=== PATIENT | female | born 1945 | race African-American/Black ===

== ENCOUNTER 2016-08-12 10:21 | Inpatient (IN) | payer OTHER ==
[2016-08-12 10:53] VITALS: BMI 20.7
--- NOTE | 2016-08-12 15:09 | HP ---
COWS - Scale Resting Pulse: 2= MS 101-120 Sweatin= Chills/Flushing Restless Observation: 1= Difficult to Sit Still Pupil Size: 1= Pupils >than Normal Bone or Joint Aches: 1= Mild Discomfort Runny Nose/ Eye Tearin= Runny Nose/Eyes GI Upset > 30mins: 2= Nausea/Diarrhea Tremor Observation: 2= Slight Tremor Visible Yawning Observation: 2= >3x During Session Anxiety or Irritability: 2=Irritable/Anxious Goose Flesh Skin: 0=Smooth Skin COWS Score: 16 Admission ROS S - HPI Chief Complaint: "I want to stop using. I want this problem to go away." Pt. is here to Detox from Heroin. Allergies/Adverse Reactions: Allergies Allergy/AdvReac Type Severity Reaction Status Date / Time ibuprofen Allergy Mild Nausea Verified 08/12/16 13:25 History of Present Illness: Pt. is a 70 YO female here to Detox from Heroin. Pt. has had 1 previous Detox admission at [facility] several years ago. Exam Limitations: No Limitations - Ebola screening Have you traveled outside of the country in the last 21 days: No Have you had contact with anyone from an Ebola affected area: No Have you been sick,other than usual withdrawal symptoms: No Do you have a fever: No - Review of Systems Constitutional: Diaphoresis, Loss of Appetite, Malaise, Night Sweats, Changes in sleep EENT: reports: Blurred Vision, Other (Denture - Upper and Lower.) Respiratory: reports: No Symptoms reported Cardiac: reports: Palpitations GI: reports: Constipated, Nausea, Poor Appetite, Vomiting, Indigestion : reports: No Symptoms Reported Musculoskeletal: reports: No Symptoms Reported Integumentary: reports: No Symptoms Reported Neuro: reports: Tremors Endocrine: reports: No Symptoms Reported Hematology: reports: Anemia (No meds.) Psychiatric: reports: Judgement Intact, Mood/Affect Appropiate, Orientated x3, Anxious, Depressed Other Systems: Reviewed and Negative Patient History - Patient Medical History Hx Anemia: Yes (No meds.) Hx Asthma: Yes (On med.) Hx Chronic Obstructive Pulmonary Disease (COPD): No Hx Cancer: No Hx Cardiac Disorders: No Hx Congestive Heart Failure: No Hx Hypertension: Yes (Previous med., last taken approx. 7 months ago (unable to afford.)) Hx Hypercholesterolemia: No Hx Pacemaker: No HX Cerebrovascular Accident: No Hx Seizures: No Hx Dementia: No Hx Diabetes: No Hx Gastrointestinal Disorders: No Hx Liver Disease: No Hx Genitourinary Disorders: No Hx Sexually Transmitted Disorders: No Hx Renal Disease (ESRD): No Hx Thyroid Disease: No Hx Human Immunodeficiency Virus (HIV): No (Last Tested approx. 3 months ago: NEGATIVE.) Hx Hepatitis C: No (Never Tested.) Hx Depression: Yes (On meds.) Hx Suicide Attempt: Yes (Age 16. PATIENT DENIES CURRENT SI / HI.) Hx Bipolar Disorder: No Hx Schizophrenia: No - Patient Surgical History Past Surgical History: No Hx Neurologic Surgery: No Hx Cataract Extraction: No Hx Cardiac Surgery: No Hx Lung Surgery: No Hx Breast Surgery: No Hx Breast Biopsy: No Hx Abdominal Surgery: No Hx Appendectomy: No Hx Cholecystectomy: No Hx Genitourinary Surgery: No Hx Section: Yes (Approx. 35 years ago.) Hx Orthopedic Surgery: Yes (Repair of left Wrist: 2011.) Hx Hysterectomy: No Anesthesia Reaction: No - PPD History Previous Implant?: Yes Documented Results: Negative w/o proof Implanted On Prior [facility] Admission?: No PPD to be Administered?: Yes - Reproductive History Patient is a Female of Child Bearing Age (11 -55 yrs old): No LMP comment: Stopped at Age 57. Patient : No - Smoking Cessation Smoking history: Current every day smoker Have you smoked in the past 12 months: Yes Aproximately how many cigarettes per day: 7 Cigars Per Day: 0 Hx Chewing Tobacco Use: No Initiated information on smoking cessation: Yes 'Breaking Loose' booklet given: 08/12/16 (GIVEN ON UNIT.) - Substance & Tx. History Hx Alcohol Use: Yes (Occasional.) Hx Substance Use: Yes Substance Use Type: Alcohol, Heroin Hx Substance Use Treatment: Yes (1 Previous Detox admission at [facility].) - Substances Abused Heroin Route: Inhalation Frequency: Daily Amount used: 3-4 bags Age of first use: 66 Date of Last Use: 08/12/16 Alcohol Route: Oral Frequency: 1-3 times last 30 days Amount used: 2 Beers. Age of first use: 16 Date of Last Use: 08/11/16 Family Disease History - Family Disease History Family Disease History: Heart Disease: Brother (1 ([place]); PTSD), Other: Brother, Sister ( (Unknown reason).) Admission Physical Exam [facility] - Vital Signs Vital Signs: Vital Signs - 24 hr 08/12/16 10:51 Temperature 98.6 F Pulse Rate 110 H Respiratory 20 Rate Blood Pressure 114/61 - Physical General Appearance: Yes: Nourished, Appropriately Dressed, Mild Distress, Tremorous, Anxious HEENTM: Yes: Hearing grossly Normal, Normocephalic, Normal Voice, ELLE, Pharynx Normal Respiratory: Yes: Chest Non-Tender, Lungs Clear, No Respiratory Distress Neck: Yes: No masses,lesions,Nodules, Supple, Trachea in good position Breast: Yes: Breast Exam Deferred Cardiology: Yes: Regular Rhythm, Regular Rate, S1, S2, Tachycardia Abdominal: Yes: Normal Bowel Sounds, Non Tender, Flat, Soft Genitourinary: Yes: Within Normal Limits Back: Yes: Normal Inspection Musculoskeletal: Yes: Gait Steady Extremities: Yes: Non-Tender, Tremors Neurological: Yes: Fully Oriented, Alert, Normal Mood/Affect, Normal Response Integumentary: Yes: Normal Color, Dry, Warm Lymphatic: Yes: Within Normal Limits - Diagnostic (1) Opioid dependence with withdrawal Current Visit: Yes Status: Acute (2) Nicotine dependence Current Visit: Yes Status: Chronic Qualifiers: Nicotine product type: cigarettes Substance use status: uncomplicated Qualified Code(s): F17.210 - Nicotine dependence, cigarettes, uncomplicated (3) Hypertension Current Visit: Yes Status: Chronic Qualifiers: Hypertension type: essential hypertension Qualified Code(s): I10 - Essential (primary) hypertension (4) Asthma Current Visit: Yes Status: Chronic Qualifiers: Asthma severity: mild persistent Asthma complication type: uncomplicated Qualified Code(s): J45.30 - Mild persistent asthma, uncomplicated Cleared for Admission [facility] - Detox or Rehab [facility] Level of Care: Medically Managed Detox Regimen/Protocol: Methadone (ADVISED PATIENT TO FOLLOW-UP WITH GAS CUTTING MACHINE OPERATOR / REHAB MEDICAL PROVIDER AFTER DISCHARGE FROM DETOX FOR GENERAL MEDICAL ASESSMENT. ) [facility] Breath Alcohol Content Breath Alcohol Content: 0 Urine Pregancy Test - Result Urine Test Results: Negative- NO Line Present Urine Drug Screen - Results Drug Screen Negative: No Urine Drug Screen Results: OPI-Opiates
[2016-08-12] MEDS ORDERED: METHADONE HCL 10 MG TABLET (FOR DETOX USE ONLY) PO ONE ×2 (15:52→23:00)
[2016-08-12] MEDS ORDERED: ACETAMINOPHEN 325 MG TABLET (FP) PO PRN (15:52)
[2016-08-12] MEDS ORDERED: MAGNESIUM HYDROX 2400MG/30ML ORAL SUSPENSION 30 ML CUP PO PRN (15:52)
[2016-08-12] MEDS ORDERED: MENTHOL/PHENOL 1 EACH UD MM PRN (15:52)
[2016-08-12] MEDS ORDERED: hydrOXYzine PAMOATE 50 MG CAPSULE (FP) PO PRN (15:52)
[2016-08-12] MEDS ORDERED: LOPERAMIDE HCL 2 MG CAPSULE PO PRN (15:52)
[2016-08-12] MEDS ORDERED: MAGNESIUM CITRATE 300 ML BOTTLE PO PRN (15:52)
[2016-08-12] MEDS ORDERED: MAG HYDROX/AL HYDROX/SIMETH 30 ML UNIT-DOSE CUP PO PRN (15:52)
[2016-08-12] MEDS ORDERED: diphenhydrAMINE HCL 50 MG CAPSULE PO PRN (15:52)
[2016-08-12] MEDS ORDERED: P-EPHED 60MG/TRIPROLIDI 2.5MG TABLET PO PRN (15:52)
[2016-08-12] MEDS ORDERED: guaiFENesin/D-METHORPHAN HB 10 ML UNIT-DOSE CUPS PO PRN (15:52)
[2016-08-12] MEDS ORDERED: ALBUTEROL SO4 6.7 GM HFA INHALER IH PRN (15:58)
[2016-08-12] MEDS: diazePAM 5 MG TABLET PO PRN ×2 (17:04→22:41)
[2016-08-12] MEDS: NICOTINE 14 MG/24 HOURS TOPICAL PATCH TD SCH (17:31)
[2016-08-12 17:41] LABS: URINE APPEARANCE CLEAR; URINE BILIRUBIN NEGATIVE (NEGATIVE); URINE BLOOD NEGATIVE (NEGATIVE); URINE COLOR LTYELLOW; URINE GLUCOSE (UA) NEGATIVE (NEGATIVE); URINE KETONE NEGATIVE (NEGATIVE); URINE LEUK ESTERASE 3+ (NEGATIVE); URINE NITRITE NEGATIVE (NEGATIVE); URINE PROTEIN NEGATIVE (NEGATIVE); URINE UROBILINOGEN NEGATIVE E.U./dl (0.2-1.0)
[2016-08-12 17:44] LABS: URINE HYALINE CAST 1 /lpf; URINE MUCUS RARE; URINE RBC <1 /hpf (0-3); URINE WBC 8 /hpf (3-5)
[2016-08-12] MEDS: BUDESONIDE/FORMETEROL FUMARATE 80/4.5 mcg INHALER IH SCH (22:41)
[2016-08-12] MEDS: THIAMINE HCL 100 MG TABLET (FP) PO SCH (22:41)
[2016-08-13] MEDS: diazePAM 5 MG TABLET PO PRN (06:15)
--- NOTE | 2016-08-13 08:44 | EKG ---
Test Reason : Blood Pressure : / mmHG Vent. Rate : 090 BPM Atrial Rate : 090 BPM P-R Int : 130 ms QRS Dur : 082 ms QT Int : 386 ms P-R-T Axes : 082 075 088 degrees QTc Int : 472 ms SINUS RHYTHM WITH PREMATURE VENTRICULAR COMPLEXES OR FUSION COMPLEXES POSSIBLE LEFT ATRIAL ENLARGEMENT NONSPECIFIC ST AND T WAVE ABNORMALITY ABNORMAL ECG NO PREVIOUS ECGS AVAILABLE Confirmed by TAL HARRINGTON MD ([id number]) on 08/13/2016 8:43:32 AM Referred By: Sebastián Lord Confirmed By:TAL HARRINGTON MD
--- NOTE | 2016-08-13 09:27 | CONSULT ---
[facility] Psychiatric Consult - Data Date of interview: 08/13/16 Admission source: [facility] Identifying data: This is 70 years old female with psychiatric hospitalization history intoxicated with: Alcohol, Opioids and Nicoptine Substance Abuse History: - Smoking Cessation. Smoking history: Current every day smoker. Have you smoked in the past 12 months: Yes. Aproximately how many cigarettes per day: 7. Cigars Per Day: 0. Hx Chewing Tobacco Use: No. Initiated information on smoking cessation: Yes. 'Breaking Loose' booklet given : 08/12/16 (GIVEN ON UNIT.). - Substance & Tx. History. Hx Alcohol Use: Yes ( Occasional.). Hx Substance Use: Yes. Substance Use Type: Alcohol, Heroin. Hx Substance Use Treatment: Yes (1 Previous Detox admission at [facility] - Substances Abused. Heroin. Route: Inhalation. Frequency: Daily. Amount used: 3-4 bags. Age of first use: 66. Date of Last Use: 08/12/16. Alcohol. Route: Oral. Frequency: 1-3 times last 30 days. Amount used: 2 Beers. Age of first use: 16. Date of Last Use: 08/11/16 Medical History: Asthma, HTN Psychiatric History: Patient reprots history of MDD with most recent psychiatric admission on more then 6 years ago, reprotys taking prior to admission: Seroquel 100mg po qhs. Paxil 10mg poqd Physical/Sexual Abuse/Trauma History: Denies Additional Comment: Seroquel 100mg po qhs. Paxil 10mg poqd Mental Status Exam - Mental Status Exam Alert and Oriented to: Person Cognitive Function: Fair Patient Appearance: Unkempt Mood: Sad Affect: Flat Patient Behavior: Sedated Speech Pattern: Delayed Voice Loudness: Mildly Loud Thought Process: Flight of Ideas Thought Disorder: Not Present Hallucinations: Denies Suicidal Ideation: Denies Homicidal Ideation: Denies Insight/Judgement: Fair Sleep: Difficulty falling asleep Appetite: Fair Muscle strength/Tone: Mild Hypotonicity Gait/Station: Shuffling Additional Comments: Seroquel 100mg po qhs. Paxil 10mg poqd Psychiatric Findings - Problem List ([place] 1, 2,3) (1) Opioid dependence with withdrawal Current Visit: Yes Status: Acute (2) Hypertension Current Visit: Yes Status: Chronic Qualifiers: Hypertension type: essential hypertension Qualified Code(s): I10 - Essential (primary) hypertension (3) Nicotine dependence Current Visit: Yes Status: Chronic Qualifiers: Nicotine product type: cigarettes Substance use status: uncomplicated Qualified Code(s): F17.210 - Nicotine dependence, cigarettes, uncomplicated (4) MDD (major depressive disorder) Current Visit: Yes Status: Acute - Initial Treatment Plan Initial Treatment Plan: Seroquel 100mg po qhs. Paxil 10mg poqd
[2016-08-13] MEDS ORDERED: METHADONE HCL 10 MG TABLET (FOR DETOX USE ONLY) PO ONE (10:00)
[2016-08-13 10:13] LABS: MCHC 26.6 g/dl (32.0-36.0); MEAN CELL VOLUME 65.2 fl (80-96); MEAN PLT VOLUME 8.7 fl (7.5-11.1); PLATELET COUNT 67 K/MM3 (134-434); RDW 26.2 % (11.6-15.6); WHITE BLOOD COUNT 4.4 K/mm3 (4.0-10.0)
[2016-08-13 10:21] LABS: CALCIUM 7.9 mg/dL (8.5-10.1); COCKROFT - GAULT 50.8895
[2016-08-13 10:23] LABS: BILIRUBIN,TOTAL 0.4 mg/dL (0.2-1.0); TOT PROT 6.2 g/dl (6.4-8.2)
[2016-08-13] MEDS: PARoxetine HCL 10 MG TABLET (FP) PO SCH (10:48)
[2016-08-13] MEDS: NICOTINE 14 MG/24 HOURS TOPICAL PATCH TD SCH (10:49)
[2016-08-13] MEDS: PRENATAL VITAMINS W/ FOLIC ACID TABLET (FP) PO SCH (10:49)
[2016-08-13] MEDS: BUDESONIDE/FORMETEROL FUMARATE 80/4.5 mcg INHALER IH SCH ×2 (10:49→22:35)
[2016-08-13 11:14] LABS: MCH 17.4 pg (25.7-33.7)
--- NOTE | 2016-08-13 11:14 | PN ---
[facility] Progress Note (SOAP) Subjective: interrupted sleep, sweats Objective: 08/13/16 11:12 Vital Signs Temperature 97.5 F L 08/13/16 06:00 Pulse Rate 78 08/13/16 06:00 Respiratory Rate 16 08/13/16 06:00 Blood Pressure 129/56 08/13/16 06:00 O2 Sat by Pulse Oximetry (%) Laboratory Tests 08/12/16 08/13/16 17:29 07:00 Sodium 144 Potassium 4.0 Chloride 106 Carbon Dioxide 32 Anion Gap 6 L BUN 21 H Creatinine 1.0 Creat Clearance w eGFR 55.14 Random Glucose 141 H Calcium 7.9 L Total Bilirubin 0.4 AST 24 ALT 20 Alkaline Phosphatase 69 Total Protein 6.2 L Albumin 3.0 L Urine Color Ltyellow Urine Appearance Clear Urine pH 5.0 Ur Specific [place] 1.012 Urine Protein Negative Urine Glucose (UA) Negative Urine Ketones Negative Urine Blood Negative Urine Nitrite Negative Urine Bilirubin Negative Urine Urobilinogen Negative Ur Leukocyte Esterase 3+ H Urine RBC <1 Urine WBC 8 Ur Epithelial Cells Rare Hyaline Casts 1 Urine Mucus Rare pt aox3 in nad ambulating 08/13/16 11:15 Assessment: 08/13/16 11:12 withdrawal sx;s Plan: cont detox increase fluids
[2016-08-13 14:47] LABS: ANISOCYTOSIS 3+; HYPOCHROMIA 4+; MICROCYTOSIS 2+
[2016-08-13 14:48] LABS: TARGET CELLS 3+
[2016-08-13] MEDS: NICOTINE POLACRILEX 2 MG GUM BC PRN (17:31)
[2016-08-13] MEDS ORDERED: PT OWN MED DRAWER 7, Y5N ONE (22:12)
[2016-08-13] MEDS: THIAMINE HCL 100 MG TABLET (FP) PO SCH (22:33)
[2016-08-13] MEDS: QUEtiapine FUMARATE 100 MG TABLET (FP) PO SCH (22:34)
[2016-08-14] MEDS ORDERED: ALBUTEROL SO4 2.5/IPRATROPIUM 0.5 INH SOL 3 ML VIAL.NEB. NEB PRN (07:28)
[2016-08-14] MEDS ORDERED: METHADONE HCL 5 MG TABLET (FOR DETOX USE ONLY) PO ONE (10:00)
[2016-08-14] MEDS: PRENATAL VITAMINS W/ FOLIC ACID TABLET (FP) PO SCH (10:30)
[2016-08-14] MEDS: NICOTINE 14 MG/24 HOURS TOPICAL PATCH TD SCH (10:30)
[2016-08-14] MEDS: PARoxetine HCL 10 MG TABLET (FP) PO SCH (10:30)
[2016-08-14] MEDS: BUDESONIDE/FORMETEROL FUMARATE 80/4.5 mcg INHALER IH SCH ×2 (10:31→22:24)
[2016-08-14] MEDS: NICOTINE POLACRILEX 2 MG GUM BC PRN (10:34)
--- NOTE | 2016-08-14 10:38 | PN ---
[facility]HS COWS - Scale Resting Pulse: 0= NV 80 or Below Sweatin= Chills/Flushing Restless Observation: 1= Difficult to Sit Still Pupil Size: 1= Pupils >than Normal Bone or Joint Aches: 2= Severe Diffuse Aches Runny Nose/ Eye Tearin= Runny Nose/Eyes GI Upset > 30mins: 1= Stomach Cramp Tremor Observation of Outstretched Hands: 0= None Yawning Observation: 0= None Anxiety or Irritability: 2=Irritable/Anxious Goose Flesh Skin: 0=Smooth Skin COWS Score: 10 S Progress Note (SOAP) Subjective: interrupted sleep, sweats, tired Objective: 08/14/16 10:36 Vital Signs Temperature 97.7 F 08/14/16 06:29 Pulse Rate 75 08/14/16 06:29 Respiratory Rate 16 08/14/16 06:29 Blood Pressure 110/77 08/14/16 06:29 O2 Sat by Pulse Oximetry (%) Laboratory Tests 08/12/16 08/12/16 08/13/16 07:00 17:29 07:00 WBC 4.4 RBC 3.86 Hgb 6.7 L* Hct 25.2 L MCV 65.2 L MCHC 26.6 L RDW 26.2 H Plt Count 67 L MPV 8.7 Hypochromic-Microcytic 4+ Anisocytosis 3+ Microcytosis 2+ Macrocytosis Few Target Cells 3+ Sodium Potassium Chloride Carbon Dioxide Anion Gap BUN Creatinine Creat Clearance w eGFR Random Glucose Calcium Total Bilirubin AST ALT Alkaline Phosphatase Total Protein Albumin Urine Color Ltyellow Urine Appearance Clear Urine pH 5.0 Ur Specific [place] 1.012 Urine Protein Negative Urine Glucose (UA) Negative Urine Ketones Negative Urine Blood Negative Urine Nitrite Negative Urine Bilirubin Negative Urine Urobilinogen Negative Ur Leukocyte Esterase 3+ H Urine RBC <1 Urine WBC 8 Ur Epithelial Cells Rare Hyaline Casts 1 Urine Mucus Rare RPR Titer Hepatitis C Antibody >11.0 H 08/13/16 08/13/16 07:00 07:00 WBC RBC Hgb Hct MCV MCHC RDW Plt Count MPV Hypochromic-Microcytic Anisocytosis Microcytosis Macrocytosis Target Cells Sodium 144 Potassium 4.0 Chloride 106 Carbon Dioxide 32 Anion Gap 6 L BUN 21 H Creatinine 1.0 Creat Clearance w eGFR 55.14 Random Glucose 141 H Calcium 7.9 L Total Bilirubin 0.4 AST 24 ALT 20 Alkaline Phosphatase 69 Total Protein 6.2 L Albumin 3.0 L Urine Color Urine Appearance Urine pH Ur Specific [place] Urine Protein Urine Glucose (UA) Urine Ketones Urine Blood Urine Nitrite Urine Bilirubin Urine Urobilinogen Ur Leukocyte Esterase Urine RBC Urine WBC Ur Epithelial Cells Hyaline Casts Urine Mucus RPR Titer Nonreactive Hepatitis C Antibody pt aox3 in nad ambulating Assessment: 08/14/16 10:37 withdrawal sx's anemia -known to pt Plan: cont detox increase fluids feso4 325mg tid vit c
[2016-08-14] MEDS: FERROUS SO4 325 MG TABLET (FP) PO SCH ×3 (13:17→18:05)
[2016-08-14] MEDS: THIAMINE HCL 100 MG TABLET (FP) PO SCH (22:23)
[2016-08-14] MEDS: QUEtiapine FUMARATE 100 MG TABLET (FP) PO SCH (22:23)
[2016-08-14] MEDS: ASCORBIC ACID 500 MG TABLET (FP) PO SCH (22:23)
[2016-08-15] MEDS: FERROUS SO4 325 MG TABLET (FP) PO SCH ×3 (08:00→18:03)
[2016-08-15] MEDS ORDERED: METHADONE HCL 5 MG TABLET (FOR DETOX USE ONLY) PO ONE (10:00)
[2016-08-15] MEDS: PRENATAL VITAMINS W/ FOLIC ACID TABLET (FP) PO SCH (10:20)
[2016-08-15] MEDS: NICOTINE 14 MG/24 HOURS TOPICAL PATCH TD SCH (10:21)
[2016-08-15] MEDS: NICOTINE POLACRILEX 2 MG GUM BC PRN (10:21)
[2016-08-15] MEDS: BUDESONIDE/FORMETEROL FUMARATE 80/4.5 mcg INHALER IH SCH ×2 (10:22→22:41)
[2016-08-15] MEDS: ASCORBIC ACID 500 MG TABLET (FP) PO SCH ×2 (10:22→22:41)
[2016-08-15 11:03] LABS: BASOPHIL 1.1 % (0-2.0); EOSINOPHIL 2.5 % (0-4.5); MCHC 27.7 g/dl (32.0-36.0); MEAN CELL VOLUME 65.3 fl (80-96); MEAN PLT VOLUME 8.8 fl (7.5-11.1); NEUTROPHILS 58.6 % (42.8-82.8); PLATELET COUNT 64 K/MM3 (134-434); RDW 26.3 % (11.6-15.6); WHITE BLOOD COUNT 4.3 K/mm3 (4.0-10.0)
--- NOTE | 2016-08-15 11:07 | PN ---
BHS Progress Note (SOAP) Subjective: interrupted sleep, sweats, decreased appetite , aches Objective: 08/15/16 11:05 Vital Signs Temperature 97.0 F L 08/15/16 06:00 Pulse Rate 88 08/15/16 06:00 Respiratory Rate 16 08/15/16 06:00 Blood Pressure 117/66 08/15/16 06:00 O2 Sat by Pulse Oximetry (%) Laboratory Tests 08/12/16 08/12/16 08/13/16 07:00 17:29 07:00 WBC 4.4 RBC 3.86 Hgb 6.7 L* Hct 25.2 L MCV 65.2 L MCHC 26.6 L RDW 26.2 H Plt Count 67 L MPV 8.7 Hypochromic-Microcytic 4+ Anisocytosis 3+ Microcytosis 2+ Macrocytosis Few Target Cells 3+ Sodium Potassium Chloride Carbon Dioxide Anion Gap BUN Creatinine Creat Clearance w eGFR Random Glucose Calcium Total Bilirubin AST ALT Alkaline Phosphatase Total Protein Albumin Urine Color Ltyellow Urine Appearance Clear Urine pH 5.0 Ur Specific [place] 1.012 Urine Protein Negative Urine Glucose (UA) Negative Urine Ketones Negative Urine Blood Negative Urine Nitrite Negative Urine Bilirubin Negative Urine Urobilinogen Negative Ur Leukocyte Esterase 3+ H Urine RBC <1 Urine WBC 8 Ur Epithelial Cells Rare Hyaline Casts 1 Urine Mucus Rare RPR Titer Hepatitis C Antibody >11.0 H 08/13/16 08/13/16 07:00 07:00 WBC RBC Hgb Hct MCV MCHC RDW Plt Count MPV Hypochromic-Microcytic Anisocytosis Microcytosis Macrocytosis Target Cells Sodium 144 Potassium 4.0 Chloride 106 Carbon Dioxide 32 Anion Gap 6 L BUN 21 H Creatinine 1.0 Creat Clearance w eGFR 55.14 Random Glucose 141 H Calcium 7.9 L Total Bilirubin 0.4 AST 24 ALT 20 Alkaline Phosphatase 69 Total Protein 6.2 L Albumin 3.0 L Urine Color Urine Appearance Urine pH Ur Specific [place] Urine Protein Urine Glucose (UA) Urine Ketones Urine Blood Urine Nitrite Urine Bilirubin Urine Urobilinogen Ur Leukocyte Esterase Urine RBC Urine WBC Ur Epithelial Cells Hyaline Casts Urine Mucus RPR Titer Nonreactive Hepatitis C Antibody pt aox3 in nad ambulating Assessment: 08/15/16 11:06 Plan: cont. detox increase fluids analgesic balm ensure bid
[2016-08-15 11:11] LABS: MCH 18.1 pg (25.7-33.7)
--- NOTE | 2016-08-15 11:44 | PN ---
[facility] Progress Note Note: 70 y/o f pt with h/o anemia not on meds Vital Signs Temperature 97.0 F L 08/15/16 06:00 Pulse Rate 88 08/15/16 06:00 Respiratory Rate 16 08/15/16 06:00 Blood Pressure 117/66 08/15/16 06:00 O2 Sat by Pulse Oximetry (%) Laboratory Tests 08/12/16 08/12/16 08/13/16 07:00 17:29 07:00 WBC 4.4 RBC 3.86 Hgb 6.7 L* Hct 25.2 L MCV 65.2 L MCHC 26.6 L RDW 26.2 H Plt Count 67 L MPV 8.7 Neutrophils % Lymphocytes % Monocytes % Eosinophils % Basophils % Hypochromic-Microcytic 4+ Anisocytosis 3+ Microcytosis 2+ Macrocytosis Few Target Cells 3+ Sodium Potassium Chloride Carbon Dioxide Anion Gap BUN Creatinine Creat Clearance w eGFR Random Glucose Calcium Total Bilirubin AST ALT Alkaline Phosphatase Total Protein Albumin Urine Color Ltyellow Urine Appearance Clear Urine pH 5.0 Ur Specific [place] 1.012 Urine Protein Negative Urine Glucose (UA) Negative Urine Ketones Negative Urine Blood Negative Urine Nitrite Negative Urine Bilirubin Negative Urine Urobilinogen Negative Ur Leukocyte Esterase 3+ H Urine RBC <1 Urine WBC 8 Ur Epithelial Cells Rare Hyaline Casts 1 Urine Mucus Rare RPR Titer Hepatitis C Antibody >11.0 H 08/13/16 08/13/16 08/15/16 07:00 07:00 07:00 WBC 4.3 RBC 3.26 L Hgb 5.9 L* D Hct 21.3 L D MCV 65.3 L MCHC 27.7 L RDW 26.3 H Plt Count 64 L MPV 8.8 Neutrophils % 58.6 Lymphocytes % 24.4 Monocytes % 13.4 H Eosinophils % 2.5 Basophils % 1.1 Hypochromic-Microcytic Anisocytosis Microcytosis Macrocytosis Target Cells Sodium 144 Potassium 4.0 Chloride 106 Carbon Dioxide 32 Anion Gap 6 L BUN 21 H Creatinine 1.0 Creat Clearance w eGFR 55.14 Random Glucose 141 H Calcium 7.9 L Total Bilirubin 0.4 AST 24 ALT 20 Alkaline Phosphatase 69 Total Protein 6.2 L Albumin 3.0 L Urine Color Urine Appearance Urine pH Ur Specific [place] Urine Protein Urine Glucose (UA) Urine Ketones Urine Blood Urine Nitrite Urine Bilirubin Urine Urobilinogen Ur Leukocyte Esterase Urine RBC Urine WBC Ur Epithelial Cells Hyaline Casts Urine Mucus RPR Titer Nonreactive Hepatitis C Antibody pt aox3 lying in bed ,tired imp- severe anemia plan ED evaluation pt signed out to Dr miller in ED [facility] ambul activated
[2016-08-15 12:13] VITALS: BP 118/62; PULSE 98; TEMP 97.7
[2016-08-15 12:39] LABS: ANISOCYTOSIS 4+; HYPOCHROMIA 3+; MICROCYTOSIS 2+
[2016-08-15 12:40] LABS: FRAGMENTED CELL 1+; TARGET CELLS 4+
[2016-08-15] MEDS: PARoxetine HCL 10 MG TABLET (FP) PO SCH (13:49)
[2016-08-15] MEDS ORDERED: METHYL SALICYLATE/MENTHOL OINT 30 GM TUBE TP SCH (22:00)
[2016-08-15] MEDS: QUEtiapine FUMARATE 100 MG TABLET (FP) PO SCH (22:41)
[2016-08-15] MEDS: THIAMINE HCL 100 MG TABLET (FP) PO SCH (22:41)
[2016-08-16] MEDS ORDERED: METHADONE HCL 10 MG TABLET (FOR DETOX USE ONLY) PO ONE (10:00)
--- NOTE | 2016-08-16 10:32 | DS ---
[facility] Detox Discharge Summary Admission Date: 08/12/16 Discharge Date: 08/15/16 - History Present History: Opioid Dependence - Physical Exam Results Vital Signs: Vital Signs Temperature 97.7 F 08/15/16 10:00 Pulse Rate 98 H 08/15/16 10:00 Respiratory Rate 18 08/16/16 03:30 Blood Pressure 118/62 08/15/16 10:00 O2 Sat by Pulse Oximetry (%) - Treatment Hospital Course: Detox Protocol Followed, Detoxed Safely Patient has Accepted a Rehab Referral to: pt transfered to ED 2nd severe anemia - Medication Discharge Medications: Ambulatory Orders Albuterol Sulfate Inhaler - [Ventolin Hfa Inhaler -] 1 - 2 inh PO QID 08/15/16 Albuterol Sulfate [Ventolin -] 2 mg PO TID 08/15/16 Ascorbic Acid [Vitamin C] 500 mg PO BID 08/15/16 Budesonide/Formeterol Fumarate [SYMBICORT 80/4.5mcg -] 1 inh PO BID 08/15/16 Diazepam [Valium] 5 mg PO DAILY 08/15/16 Diphenhydramine [Benadryl -] 50 mg PO DAILY 08/15/16 Ferrous Sulfate [Feosol] 325 mg PO DAILY 08/15/16 Hydroxyzine Pamoate [Vistaril -] 50 mg PO TID 08/15/16 Loperamide HCl [Imodium -] 4 mg PO ASDIR 08/15/16 Magnesium Hydrox 2400MG/30Ml [Milk of Magnesia -] 30 ml PO ONCE 08/15/16 Methadone (Detox) [Dolophine -] 15 mg PO DAILY 08/15/16 P-Ephed 60Mg/Triprolidi 2.5MG [Actifed -] 1 combo PO Q4H 08/15/16 Paroxetine HCl [Paxil -] 10 mg PO DAILY 08/15/16 Vit/Iron Fumarate/FA [ Tablet] 1 each PO DAILY 08/15/16 Quetiapine Fumarate [Seroquel] 100 tab PO DAILY 08/15/16 Thiamine HCl [Vitamin B1] 100 mg PO DAILY 08/15/16 - Diagnosis (1) Anemia Status: Acute (2) Opioid dependence with withdrawal Status: Acute (3) Asthma Status: Chronic Qualifiers: Asthma severity: mild persistent Asthma complication type: uncomplicated Qualified Code(s): J45.30 - Mild persistent asthma, uncomplicated (4) Hypertension Status: Chronic Qualifiers: Hypertension type: essential hypertension Qualified Code(s): I10 - Essential (primary) hypertension (5) Nicotine dependence Status: Chronic Qualifiers: Nicotine product type: cigarettes Substance use status: uncomplicated Qualified Code(s): F17.210 - Nicotine dependence, cigarettes, uncomplicated - AMA Did Patient Leave Against Medical Advice: No
[2016-08-16 14:18] LABS: HCV LOG 10 5.217 (.)
[2016-08-17] MEDS ORDERED: METHADONE HCL 5 MG TABLET (FOR DETOX USE ONLY) PO ONE (06:00)
== END 2016-08-15 12:38 | disposition short-term general hospital (02) | DRG 897 ==
LOC: YASAS 10:21 → Y6N 13:49
PROVIDERS: ADMIT Internal Medicine; ATTEND Internal Medicine Addiction Medicine
PROC: HZ2ZZZZ Detoxification Services for Substance Abuse Treatment (ICD-10-PCS; principal; 2016-08-16)
DX: F11.23 Opioid dependence with withdrawal (principal); F33.9 Major depressive disorder, recurrent, unspecified; F17.210 Nicotine dependence, cigarettes, uncomplicated; I10 Essential (primary) hypertension; J45.20 Mild intermittent asthma, uncomplicated; D64.9 Anemia, unspecified
CPT/HCPCS: 36415; 80053; 81003; 81015; 85025; 85027; 86593; 87522; 93005; 93010; 94640

== ENCOUNTER 2016-08-15 12:52 | Inpatient (IN) | payer OTHER ==
--- NOTE | 2016-08-15 13:11 | PDOC ---
History of Present Illness - General Chief Complaint: Revisit, Lab Variance Stated Complaint: Revisit, Lab Variance Time Seen by Provider: 08/15/16 12:55 History Source: Patient Exam Limitations: No Limitations - History of Present Illness Initial Comments: 08/15/16 13:34 70 yo F with pmhx of heroin abuse, asthma and depression presents from [facility] where she was found to be anemic. Non history of GI bleed. Denies blood in stools, urine or hemoptysis. When she presents here to ED she is found to be hypoxic SpO2 -85% on RA with scattered wheezing. She was admitted to detox 3 days prior for heroin detox. She usually snorts 3-4 bags daily. No recent illness or sick contacts. Denies CP,MOSHER, palpitations, abd. pain, or N/V. Past History - Travel Traveled outside of the country in the last 30 days: No Close contact w/someone who was outside of country & ill: No - Past Medical History Allergies/Adverse Reactions: Allergies Allergy/AdvReac Type Severity Reaction Status Date / Time ibuprofen Allergy Mild Nausea Verified 08/15/16 12:53 Home Medications: Ambulatory Orders Albuterol Sulfate Inhaler - [Ventolin Hfa Inhaler -] 1 - 2 inh PO QID 08/15/16 Albuterol Sulfate [Ventolin -] 2 mg PO TID 08/15/16 Ascorbic Acid [Vitamin C] 500 mg PO BID 08/15/16 Budesonide/Formeterol Fumarate [SYMBICORT 80/4.5mcg -] 1 inh PO BID 08/15/16 Diazepam [Valium] 5 mg PO DAILY 08/15/16 Diphenhydramine [Benadryl -] 50 mg PO DAILY 08/15/16 Ferrous Sulfate [Feosol] 325 mg PO DAILY 08/15/16 Hydroxyzine Pamoate [Vistaril -] 50 mg PO TID 08/15/16 Loperamide HCl [Imodium -] 4 mg PO ASDIR 08/15/16 Magnesium Hydrox 2400MG/30Ml [Milk of Magnesia -] 30 ml PO ONCE 08/15/16 Methadone (Detox) [Dolophine -] 15 mg PO DAILY 08/15/16 P-Ephed 60Mg/Triprolidi 2.5MG [Actifed -] 1 combo PO Q4H 08/15/16 Paroxetine HCl [Paxil -] 10 mg PO DAILY 08/15/16 Vit/Iron Fumarate/FA [ Tablet] 1 each PO DAILY 08/15/16 Quetiapine Fumarate [Seroquel] 100 tab PO DAILY 08/15/16 Thiamine HCl [Vitamin B1] 100 mg PO DAILY 08/15/16 Anemia: Yes (No meds.) Asthma: Yes (On med.) Cancer: No Cardiac Disorders: No CVA: No COPD: No CHF: No Dementia: No Diabetes: No GI Disorders: No Disorders: No HTN: Yes (Previous med., last taken approx. 7 months ago (unable to afford.)) Hypercholesterolemia: No Kidney Stones: No Liver Disease: No Psychiatric Problems: Yes (anxiety/depression) Suicide Attempt (Hx): Yes (Age 16. PATIENT DENIES CURRENT SI / HI.) Seizures: No Thyroid Disease: No - Surgical History Abdominal Surgery: No Appendectomy: No Cardiac Surgery: No Cholecystectomy: No Lung Surgery: No Neurologic Surgery: No Orthopedic Surgery: Yes (Repair of left Wrist: 2012.) - Family Disease History Family Disease History: Heart Disease: Brother - Reproductive History PID: No - Psycho/Social/Smoking Cessation Hx Anxiety: Yes Suicidal Ideation: No Smoking History: Current every day smoker Have you smoked in the past 12 months: Yes Number of Cigarettes Smoked Daily: 7 Cigars Per Day: 0 Information on smoking cessation initiated: No 'Breaking Loose' booklet given: 08/12/16 Hx Alcohol Use: No Drug/Substance Use Hx: No Substance Use Type: Alcohol, Heroin Hx Substance Use Treatment: Yes (1 Previous Detox admission at [facility].) Review of Systems - Review of Systems Able to Perform ROS?: Yes Is the patient limited Urdu proficient: No Constitutional: No: Diaphoresis, Fever Respiratory: No: Cough Cardiac (ROS): No: Chest Pain, Palpitations ABD/GI: No: Difficulty Swallowing, Nausea, Rectal Bleeding, Vomiting, Tarry Stools Musculoskeletal: Yes: Muscle Weakness All Other Systems: Reviewed and Negative *Physical Exam - Vital Signs Last Vital Signs Temp Pulse Resp BP Pulse Ox 98.2 F 76 22 111/58 85 L 08/15/16 13:04 08/15/16 13:04 08/15/16 13:04 08/15/16 13:04 08/15/16 13:04 - Physical Exam General Appearance: Yes: Mild Distress HEENT: positive: EOMI, ELLE, Normal Voice Neck: positive: Supple Respiratory/Chest: positive: Decreased Breath Sounds, Wheezing. negative: Respiratory Distress, Accessory Muscle Use Cardiovascular: positive: Regular Rhythm, Regular Rate, S1, S2. negative: Edema , JVD, Murmur Vascular Pulses: Dorsalis-Pedis (R): 2+, Doralis-Pedis (L): 2+ Gastrointestinal/Abdominal: positive: Normal Bowel Sounds, Flat, Soft. negative : Tender, Pulsatile Mass Musculoskeletal: positive: Normal Inspection, CVA Tenderness Extremity: positive: Normal Capillary Refill, Normal Inspection Integumentary: positive: Normal Color, Dry, Warm. negative: Cyanotic, Erythema , Jaundice Neurologic: positive: Fully Oriented, Depressed Affect ED Treatment Course - LABORATORY CBC & Chemistry Diagram: 08/15/16 13:04 08/15/16 13:04 Medical Decision Making - Medical Decision Making 08/15/16 13:42 70 yo F with pmhx of heroin abuse, asthma and depression presents from [facility] where she was found to be anemic. Patient also found to be hypoxic. Will get ABG and measured peak flow was 80. Ordered Duonebs and supplemental O2. Will get CXR and labs (CBC,CMP,UA). 08/15/16 14:03 CBC shows Hgb of 5.9 will send for type and screen. Also ordered 2 units of PRBC. *DC/Admit/Observation/Transfer Diagnosis at time of Disposition: Acute respiratory failure with hypoxia and hypercapnia Anemia Qualifiers: Anemia type: unspecified type Qualified Code(s): D64.9 - Anemia, unspecified - Discharge Dispostion Admit: Yes - Referrals Referrals: Michela Mendoza MD [Primary Care Provider] -
[2016-08-15] MEDS: ALBUTEROL SO4 2.5/IPRATROPIUM 0.5 INH SOL 3 ML VIAL.NEB. NEB SCH ×2 (13:20→14:41)
[2016-08-15] MEDS ORDERED: ALBUTEROL SO4 2.5/IPRATROPIUM 0.5 INH SOL 3 ML VIAL.NEB. NEB ONE ×3 (13:24→14:24)
[2016-08-15] MEDS ORDERED: methylPREDNISolone NA SUCC 125 MG/2 ML VIAL ONE (14:24)
[2016-08-15] MEDS ORDERED: methylPREDNISolone NA SUCC 125 MG/2 ML VIAL IVPB ONE (14:24)
[2016-08-15 14:28] LABS: EOSINOPHIL 2.1 % (0-4.5); MCHC 27.3 g/dl (32.0-36.0); MEAN PLT VOLUME 9.3 fl (7.5-11.1); PLATELET COUNT 61 K/MM3 (134-434); RDW 26.1 % (11.6-15.6); WHITE BLOOD COUNT 4.6 K/mm3 (4.0-10.0)
--- NOTE | 2016-08-15 14:29 | PDOC ---
Attending Attestation - Resident Resident Name: Akash Benjamin - ED Attending Attestation I have performed the following: I have examined & evaluated the patient, The case was reviewed & discussed with the resident, I agree w/resident's findings & plan, Exceptions are as noted - HPI HPI: 08/15/16 14:28 70-year-old female with history of heroin abuse and anemia sent from [facility] for severe anemia - Physicial Exam PE: 08/15/16 14:28 Sleepy but arousable, O2 sat off oxygen 85%, improved to 100% on 3 L. Afebrile. Decreased breath sounds at both bases with prolonged expiration and diffuse expiratory wheezing Abdomen benign. Trace ankle edema bilaterally Neurologically intact - Critical Care Time Total Critical Care Time: 35 Critical Care Statement: The care of this patient involved high complexity decision making to prevent further life threatening deterioration of the patient 's condition and/or to evalute & treat vital organ system(s) failure or risk of failure. - Medical Decision Making 08/15/16 14:29 Patient seen and evaluated with the resident. I agree with the overall evaluation, assessment, and management with the following summary of visit: 70-year-old female with history of heroin abuse and anemia and asthma sent with severe anemia. Found to be somnolent, hypoxic on room air. Hemoglobin today was 5.9. Question etiology of the somnolence: CT head, check pCO2, check ammonia. Will require admission 08/15/16 15:39 hypercarbic on ABG but mental status markedly improved on O2. Will place on bipap and reasess, proceed with admission. Discharge Disposition - Diagnosis Acute respiratory failure with hypoxia and hypercapnia Anemia Qualifiers: Anemia type: unspecified type Qualified Code(s): D64.9 - Anemia, unspecified - Discharge Dispostion Last Admission D/C Date: 02/15/09 - Referrals Referrals: Michela Mendoza MD [Primary Care Provider] - - Patient Instructions - Post Discharge Activity Heart Score/ECG Review #1 ECG reviewed & interpreted by me at: 14:28 08/15/16 14:30 Sinus at 76 with PVCs, septal Q waves, no acute ST or T wave changes noted
[2016-08-15 14:37] LABS: MCH 17.8 pg (25.7-33.7)
[2016-08-15 14:41] LABS: INR 1.1 (0.82-1.09); PROTHROMBIN TIME (PATIENT) 12.1 SEC (9.98-11.88)
[2016-08-15 14:49] LABS: ALBUMIN 2.7 g/dl (3.4-5.0); ANION GAP 3 (8-16); BILIRUBIN,TOTAL 0.2 mg/dL (0.2-1.0); CALCIUM 7.4 mg/dL (8.5-10.1); CO2 35 mmol/L (21-32); COCKROFT - GAULT 73.8055; CREATININE 0.7 mg/dL (0.55-1.02); GLUCOSE,RANDOM 91 mg/dL (74-106); MAGNESIUM 2.2 mg/dL (1.8-2.4); SGOT/AST 25 U/L (15-37); SGPT/ALT 20 U/L (12-78); TOT PROT 5.9 g/dl (6.4-8.2)
[2016-08-15 14:51] LABS: ALK PHOS 67 U/L (45-117); TROPONIN I < 0.02 ng/ml (0.00-0.05)
[2016-08-15 14:59] LABS: URINE APPEARANCE CLEAR; URINE BILIRUBIN NEGATIVE (NEGATIVE); URINE BLOOD NEGATIVE (NEGATIVE); URINE COLOR YELLOW; URINE GLUCOSE (UA) NEGATIVE (NEGATIVE); URINE KETONE NEGATIVE (NEGATIVE); URINE LEUK ESTERASE NEGATIVE (NEGATIVE); URINE NITRITE NEGATIVE (NEGATIVE); URINE PROTEIN NEGATIVE (NEGATIVE); URINE UROBILINOGEN NEGATIVE E.U./dl (0.2-1.0)
[2016-08-15 15:18] LABS: ARTERIAL BLD GAS O2 SATURATION 81.7 % (90-98.9); ARTERIAL BLOOD GAS BASE EXCESS 6.1 meq/l (-2-2); ARTERIAL BLOOD GAS HCO3 32.8 meq/L (22-26); ARTERIAL BLOOD GAS PO2 53.5 mmHg (80-100); ARTERIAL BLOOD GAS pH 7.29 (7.35-7.45)
[2016-08-15 15:37] LABS: ALLENS TEST POSITIVE; ART PUNCT SITE LEFT BRACHIAL; LPM/O2% 21%; METHEMOGLOBIN 0.7 % (0.4-1.5); PT. ON O2? NO; TYPE OF O2 ROOM AIR
--- NOTE | 2016-08-15 19:06 | PN ---
Teaching Attending Note Name of Resident: Bessy Martinez ATTENDING PHYSICIAN STATEMENT I saw and evaluated the patient. I reviewed the resident's note and discussed the case with the resident. I agree with the resident's findings and plan as documented. SUBJECTIVE:70yo F c/o SOB and lethargy. was sent from [facility] for evaluation due to Hgb 6. pt snort 3-4 baggies daily, last use 3 days ago prior to admission to [facility] for detox which she is on day 3 of treatment. states she never had blood transfusion in the past. +subjective weight loss. had colonoscopy 3-4 years ago negative per pt. denies CP, fever, chills, cough, melena, BRBPR OBJECTIVE: Last Vital Signs Temp Pulse Resp BP Pulse Ox 98.2 F 77 17 152/60 97 08/15/16 13:04 08/15/16 16:03 08/15/16 16:03 08/15/16 16:03 08/15/16 16:03 General NAD, lethargic but easily arrousable to verbal stimuli CV S1 S2 RRR no murmur/rub/gallop. +pectus excavatum Lungs coarse breath sounds diffusely. no wheezing Abdomen soft NT/ND Rectal +external hemrrhoids. possible rectal mass anteriorly, good rectal tone. hard stool felt in rectal vault no bleeding ASSESSMENT AND PLAN: 70yo F with PMH Continuous heroin dependence, anemia and depression presented to the ER and was admitted for further evaluation for their emergent condition 1. Symptomatic anemia- currently receiving 1 unit PRBC. will check post transfusion cbc. add iron studies to admitting labs. concern for malignancy assoc with weight loss. GI consult to for evaluation of possible mass. will likely require colonoscopy. trend cardiac markers 2. Acute hypoxic hypercapnic respiratory failure-component of anemia vs possible COPD exacerbation (?history as on symbicort at home). started on solumedrol. CXR negative. will consider CT chest if doesnt improve. will hold at this time due to tenuous respiratory status. maintain spO2 >90% 3. Continuous heroin dependence- on methadone taper. received 15mg today (taper to be 10mg tomorrow and complete following day on 5mg). hold for lethargy. will d/w pt if interested in inpatient rehab when more alert. 4. depression- cont home medication 5. DVT ppx- SCD. hold pharmacological anticoagulation
--- NOTE | 2016-08-15 19:40 | HP ---
CHIEF COMPLAINT: weakness PCP:from [facility] HISTORY OF PRESENT ILLNESS: This is a 70 year old female with a PMHx of asthma and heroin abuse, sent over from [facility] due to increased lethargy, short of breath, found to be anemic with a hemoglobin of 5.9. Patient does have chronic history of anemai, she is on iron pills. NO known history of bleeding disorder, cancer, denies black stool. Last colonoscopy over 5 years ago. She is a smoker 3-5 cigs per day. She uses heroin 3-4 bags per day. Denies chest pain, headache, fever, chills, cough, n,v,d,changed in bowel or bladder. On admission patient was hypercarbic on ABG, hypoxic on room air. She was placed on biPap and given PRBC. ER course was notable for: (1)hypoxia, hypercarbia, cxr wnl (2)hemoglobin 5.9 (3)Sinus at 76 with PVCs, septal Q waves, no acute ST or T wave changes noted Recent Travel: no PAST MEDICAL HISTORY: anemia, asthma, drug abuse PAST SURGICAL HISTORY: Social History: Smokin cigs per day Alcohol:no Drugs: heroin Family History: Allergies ibuprofen Allergy (Mild, Verified 08/15/16 12:53) Nausea HOME MEDICATIONS: Home Medications Medication Instructions Recorded Albuterol Sulfate Inhaler - 1 - 2 inh PO QID 08/15/16 [Ventolin Hfa Inhaler -] Albuterol Sulfate [Ventolin -] 2 mg PO TID 08/15/16 Ascorbic Acid [Vitamin C] 500 mg PO BID 08/15/16 Budesonide/Formeterol Fumarate 1 inh PO BID 08/15/16 [SYMBICORT 80/4.5mcg -] Diazepam [Valium] 5 mg PO DAILY 08/15/16 Diphenhydramine [Benadryl -] 50 mg PO DAILY 08/15/16 Ferrous Sulfate [Feosol] 325 mg PO DAILY 08/15/16 Hydroxyzine Pamoate [Vistaril -] 50 mg PO TID 08/15/16 Loperamide HCl [Imodium -] 4 mg PO ASDIR 08/15/16 Magnesium Hydrox 2400MG/30Ml [Milk 30 ml PO ONCE 08/15/16 of Magnesia -] Methadone (Detox) [Dolophine -] 15 mg PO DAILY 08/15/16 P-Ephed 60Mg/Triprolidi 2.5MG 1 combo PO Q4H 08/15/16 [Actifed -] Paroxetine HCl [Paxil -] 10 mg PO DAILY 08/15/16 Vit/Iron Fumarate/FA 1 each PO DAILY 08/15/16 [ Tablet] Quetiapine Fumarate [Seroquel] 100 tab PO DAILY 08/15/16 Thiamine HCl [Vitamin B1] 100 mg PO DAILY 08/15/16 REVIEW OF SYSTEMS CONSTITUTIONAL: Absent: fever, chills, diaphoresis, generalized weakness, malaise, loss of appetite, weight change HEENT: Absent: rhinorrhea, nasal congestion, throat pain, throat swelling, difficulty swallowing, mouth swelling, ear pain, eye pain, visual changes CARDIOVASCULAR: Absent: chest pain, syncope, palpitations, irregular heart rate, lightheadedness , peripheral edema RESPIRATORY: Positive:shortness of breath, dyspnea with exertiowheezing Absent: cough, n, orthopnea, , stridor, hemoptysis GASTROINTESTINAL: Absent: abdominal pain, abdominal distension, nausea, vomiting, diarrhea, constipation, melena, hematochezia GENITOURINARY: Absent: dysuria, frequency, urgency, hesitancy, hematuria, flank pain, genital pain MUSCULOSKELETAL: Absent: myalgia, arthralgia, joint swelling, back pain, neck pain SKIN: Absent: rash, itching, pallor HEMATOLOGIC/IMMUNOLOGIC: Absent: easy bleeding, easy bruising, lymphadenopathy, frequent infections ENDOCRINE: Absent: unexplained weight gain, unexplained weight loss, heat intolerance, cold intolerance NEUROLOGIC: Absent: headache, focal weakness or paresthesias, dizziness, unsteady gait, seizure, mental status changes, bladder or bowel incontinence PSYCHIATRIC: Absent: anxiety, depression, suicidal or homicidal ideation, hallucinations. PHYSICAL EXAMINATION Vital Signs - 24 hr 08/15/16 08/15/16 19:10 19:11 Pulse Rate 75 O2 Sat by Pulse 99 99 Oximetry (%) GENERAL: Awake, alert, and fully oriented, in no acute distress. HEAD: Normal with no signs of trauma. bipap on LUNGS: decreased Breath sounds equal, scattered wheezes; decreased air movement , course HEART: Regular rate and rhythm, normal S1 and S2 without murmur, rub or gallop. ABDOMEN: Soft, nontender, not distended, normoactive bowel sounds, no guarding, no rebound, no masses. No hepatomegaly or splenomegaly. MUSCULOSKELETAL: Normal range of motion at all joints. No bony deformities or tenderness. No CVA tenderness. UPPER EXTREMITIES: 2+ pulses, warm, well-perfused. No cyanosis. No clubbing. No peripheral edema. LOWER EXTREMITIES: 2+ pulses, warm, well-perfused. No calf tenderness. No peripheral edema. NEUROLOGICAL: Cranial nerves II-XII intact. Normal speech. Normal gait. PSYCHIATRIC: Cooperative. Good eye contact. Appropriate mood and affect. SKIN: Warm, dry, normal turgor, no rashes or lesions noted, normal capillary refill. RECTAl exam: external hemmriods; no obvious bleed; normal rectal tone; stool in vault no visible blood; CBC, BMP 08/15/16 13:04 08/15/16 13:04 ASSESSMENT/PLAN: 70 year old female with a PMhx of asthma, anemia, drug abuse, sent over from [facility] due to anemia, hypoxia; found to be in acute respiratory failure and severely anemic. #hypercarbic respiratory failure secondary to asthma exacerbation may have COPD component ; -repeat ABG -biPAP overnight -125IV solumedrol given in ED -cont solumedrol 40mg IV q8h -cont albuterol/symbicort sched home medications along with albuterol neb q4h prn -trend troponins -CXR wnl #anemia acute on chronic;r/o secondary causes of bleed -2 U PRBC -repeat cbc -iron studies -last colonoscopy 5 years ago; place unknown #detox: -continue methadone 15mg -taper by 5 mg each day FEN: Fluids: ns Electrolytes:wnl Diet: regular VTE: na Disposition: med surg Visit type - Emergency Visit Emergency Visit: Yes ED Registration Date: 08/15/16 Care time: The patient presented to the Emergency Department on the above date and was hospitalized for further evaluation of their emergent condition. - New Patient This patient is new to me today: Yes Date on this admission: 08/15/16 - Critical Care Critical Care patient: No
[2016-08-15] MEDS ORDERED: ALBUTEROL SO4 0.083% IH SOL 2.5 MG/3 ML VIAL.NEB. NEB PRN (19:44)
[2016-08-15] MEDS ORDERED: LOPERAMIDE HCL 2 MG CAPSULE PO PRN (19:45)
[2016-08-15] MEDS ORDERED: P-EPHED 60MG/TRIPROLIDI 2.5MG TABLET PO PRN (19:45)
[2016-08-15 21:42] LABS: ARTERIAL BLOOD GAS BASE EXCESS 3.6 meq/l (-2-2); ARTERIAL BLOOD GAS HCO3 30.4 meq/L (22-26); ARTERIAL BLOOD GAS PO2 99.7 mmHg (80-100)
[2016-08-15 21:43] LABS: ALLENS TEST POSITIVE; ART PUNCT SITE RIGHT RADIAL; ARTERIAL BLOOD GAS pH 7.29 (7.35-7.45); LPM/O2% 4LPM; PT. ON O2? YES; TYPE OF O2 NASAL
[2016-08-15] MEDS: hydrOXYzine PAMOATE 25 MG CAPSULE (FP) PO SCH (23:00)
[2016-08-15] MEDS: ALBUTEROL SO4 2 MG TABLET PO SCH (23:00)
[2016-08-15] MEDS: BUDESONIDE/FORMETEROL FUMARATE 80/4.5 mcg INHALER IH SCH (23:00)
[2016-08-16] MEDS ORDERED: ALBUTEROL SO4 2.5/IPRATROPIUM 0.5 INH SOL 3 ML VIAL.NEB. NEB SCH
[2016-08-16] MEDS: ALBUTEROL SO4 6.7 GM HFA INHALER IH SCH ×2 (01:14→06:28)
[2016-08-16 01:53] LABS: MEAN CELL VOLUME 68.2 fl (80-96); MEAN PLT VOLUME 8.9 fl (7.5-11.1); PLATELET COUNT 67 K/MM3 (134-434); RDW 28.4 % (11.6-15.6); WHITE BLOOD COUNT 4.7 K/mm3 (4.0-10.0)
[2016-08-16 01:56] LABS: MCH 19.8 pg (25.7-33.7)
[2016-08-16] MEDS ORDERED: methylPREDNISolone NA SUCC 40 MG/1 ML VIAL IVPB SCH (02:00)
[2016-08-16] MEDS ORDERED: methylPREDNISolone NA SUCC 40 MG/1 ML VIAL ONE ×2 (03:03→10:57)
[2016-08-16] MEDS ORDERED: diazePAM 5 MG TABLET PO ONE (03:06)
[2016-08-16 04:30] LABS: HYPOCHROMIA 3+; PLATELET COMMENT2 NO CLOTTING DETECTED; PLATELET COMMENT3 FEW GIANT PLTS; PLATELET ESTIMATE DECREASED (NORMAL); POIKILOCYTOSIS 2+; POLYCHROMASIA 1+
[2016-08-16 04:31] LABS: ANISOCYTOSIS 3+; MICROCYTOSIS 2+; OVALOCYTES 1+; SPHEROCYTE 1+; TARGET CELLS 2+
[2016-08-16] MEDS: hydrOXYzine PAMOATE 25 MG CAPSULE (FP) PO SCH ×3 (06:26→22:16)
[2016-08-16] MEDS: ALBUTEROL SO4 2 MG TABLET PO SCH (06:27)
[2016-08-16 07:48] LABS: BASOPHIL 0.2 % (0-2.0); EOSINOPHIL 0.1 % (0-4.5); MCHC 29.2 g/dl (32.0-36.0); MEAN CELL VOLUME 68.7 fl (80-96); MEAN PLT VOLUME 9.6 fl (7.5-11.1); NEUTROPHILS 92.2 % (42.8-82.8); PLATELET COUNT 66 K/MM3 (134-434); RDW 28.3 % (11.6-15.6); WHITE BLOOD COUNT 3.9 K/mm3 (4.0-10.0)
[2016-08-16 08:56] LABS: ALBUMIN 3.1 g/dl (3.4-5.0); CALCIUM 8.1 mg/dL (8.5-10.1); COCKROFT - GAULT 51.663; MAGNESIUM 2.2 mg/dL (1.8-2.4)
[2016-08-16 08:58] LABS: BILIRUBIN,TOTAL 0.5 mg/dL (0.2-1.0); PHOSPHOROUS 2.4 mg/dL (2.5-4.9); TOT PROT 6.6 g/dl (6.4-8.2)
[2016-08-16] MEDS ORDERED: METHADONE HCL 5 MG TABLET PO SCH (10:00)
[2016-08-16] MEDS ORDERED: diazePAM 5 MG TABLET ONE (10:56)
[2016-08-16] MEDS ORDERED: PANTOPRAZOLE 40 MG TABLET (FP) ONE (10:56)
[2016-08-16] MEDS ORDERED: METHADONE HCL 10 MG TABLET ONE (10:56)
[2016-08-16] MEDS ORDERED: PARoxetine HCL 10 MG TABLET (FP) ONE ×2 (10:57→10:58)
[2016-08-16] MEDS ORDERED: QUEtiapine FUMARATE 100 MG TABLET (FP) ONE (10:57)
[2016-08-16] MEDS: BUDESONIDE/FORMETEROL FUMARATE 80/4.5 mcg INHALER IH SCH ×2 (11:05→21:34)
[2016-08-16] MEDS: PANTOPRAZOLE 40 MG TABLET (FP) PO SCH (11:06)
[2016-08-16] MEDS: QUEtiapine FUMARATE 100 MG TABLET (FP) PO SCH (11:06)
[2016-08-16] MEDS: NICOTINE POLACRILEX 2 MG GUM BUC PRN ×2 (11:06→21:43)
[2016-08-16] MEDS: methylPREDNISolone NA SUCC 40 MG/1 ML VIAL IVPB SCH ×2 (11:06→21:34)
[2016-08-16] MEDS: PARoxetine HCL 10 MG TABLET (FP) PO SCH (11:06)
[2016-08-16] MEDS: THIAMINE HCL 100 MG TABLET (FP) PO SCH (11:07)
[2016-08-16] MEDS: diazePAM 5 MG TABLET PO SCH (11:07)
--- NOTE | 2016-08-16 12:15 | PN ---
Teaching Attending Note Name of Resident: Bessy Martinez ATTENDING PHYSICIAN STATEMENT I saw and evaluated the patient. I reviewed the resident's note and discussed the case with the resident. I agree with the resident's findings and plan as documented. SUBJECTIVE:c/o abdominal discomfort diffusely, unable to ascertain when that started. no BM since admission. tolerating diet. denies CP, SOB,fever, chills, N /V/C/D OBJECTIVE: Last Vital Signs Temp Pulse Resp BP Pulse Ox 98 F 75 18 138/72 94 L 08/16/16 08:27 08/16/16 11:02 08/16/16 08:27 08/16/16 08:27 08/16/16 11:02 General NAD, lethargic but easily arrousable to verbal stimuli, thin appearing CV S1 S2 RRR no murmur/rub/gallop. +pectus excavatum Lungs coarse breath sounds diffusely. no wheezing, poor inspiratory effort Abdomen soft NT/ND no masses ASSESSMENT AND PLAN: 70yo F with PMH Continuous heroin dependence, anemia and depression presented to the ER and was admitted for further evaluation for their emergent condition 1. Symptomatic anemia-s/p 2 unit PRBC unclear if repeat hgb is after 2nd unit. will order repeat CBC now. GI consulted, concern for rectal mass. will likely require colonoscopy. currently receiving 1 unit PRBC. will check post transfusion cbc. add iron studies to admitting labs. concern for malignancy assoc with weight loss. GI consult to for evaluation of possible mass. will likely require colonoscopy. 2. Acute hypoxic hypercapnic respiratory failure-component of anemia vs possible COPD exacerbation. currently saturating 98% on 2L NC. will repeat ABG to check on CO2 level as remained elevated in the evening. taper steroids. nebs prn. maintain spO2 >90% 3. Continuous heroin dependence- on methadone taper. received 15mg today (taper to be 10mg tomorrow and complete following day on 5mg). hold for lethargy. pt interested in inpatient rehab. will d/w detox specialist when medically optimized 4. Malnourrished- dietary eval. 5. depression- cont home medication 6. DVT ppx- SCD. hold pharmacological anticoagulation
--- NOTE | 2016-08-16 12:28 | EKG ---
Test Reason : Blood Pressure : / mmHG Vent. Rate : 076 BPM Atrial Rate : 076 BPM P-R Int : 124 ms QRS Dur : 080 ms QT Int : 412 ms P-R-T Axes : 078 067 077 degrees QTc Int : 463 ms POOR DATA QUALITY, INTERPRETATION MAY BE ADVERSELY AFFECTED SINUS RHYTHM WITH FREQUENT PREMATURE VENTRICULAR COMPLEXES POSSIBLE LEFT ATRIAL ENLARGEMENT SEPTAL INFARCT , AGE UNDETERMINED ABNORMAL ECG WHEN COMPARED WITH ECG OF 12-AUG-2016 16:19, FUSION COMPLEXES ARE NO LONGER PRESENT SEPTAL INFARCT IS NOW PRESENT Confirmed by RAMYA RAMIREZ MD ([id number]) on 08/16/2016 12:27:33 PM Referred By: Confirmed By:RAMYA RAMIREZ MD
[2016-08-16 13:00] VITALS: BMI 20.5
[2016-08-16 14:02] LABS: ARTERIAL BLD GAS O2 SATURATION 98.5 % (90-98.9); ARTERIAL BLOOD GAS BASE EXCESS 7.2 meq/l (-2-2); ARTERIAL BLOOD GAS HCO3 34.7 meq/L (22-26)
[2016-08-16 14:04] LABS: ALLENS TEST POSITIVE; ART PUNCT SITE RIGHT RADIAL; LPM/O2% 3; PT. ON O2? YES; TYPE OF O2 N/C
[2016-08-16 14:05] LABS: ARTERIAL BLOOD GAS pH 7.29 (7.35-7.45)
--- NOTE | 2016-08-16 16:20 | PN ---
Addendum entered and electronically signed by Bessy Martinez RES 08/16/16 16 :50: Patient seen and examined by GI; recommends colonoscopy when medically cleared. Will order Hep a,b,c; US Original Note: Physical Exam: SUBJECTIVE: Patient seen and examined off BiPaP this morning on 2LNC. Breathing improved. less lethargic and short of breath. OBJECTIVE: Vital Signs Period Temp Pulse Resp BP Sys/Killian Pulse Ox Last 24 Hr 97.9 F-98.6 F 75-92 17-21 121-143/57-75 94-100 GENERAL: The patient is thin, awake, alert, and fully oriented, in no acute distress. HEAD: Normal with no signs of trauma. NECK: Trachea midline, full range of motion, supple. LUNGS: Breath sounds equal, clear to auscultation bilaterally, no wheezes, no crackles, no accessory muscle use. HEART: Regular rate and rhythm, S1, S2 without murmur, rub or gallop. ABDOMEN: Soft, nontender, nondistended, normoactive bowel sounds, no guarding, no rebound, no hepatosplenomegaly, no masses. EXTREMITIES: 2+ pulses, warm, well-perfused, no edema. NEUROLOGICAL: Cranial nerves II through XII grossly intact. Normal speech, gait not observed. PSYCH: Normal mood, normal affect. SKIN: Warm, dry, normal turgor, no rashes or lesions noted CBC, BMP 08/16/16 14:45 08/16/16 06:30 Active Medications Generic Name Dose Route Start Last Admin Trade Name Freq PRN Reason Stop Dose Admin Albuterol Sulfate 1 amp 08/15/16 19:44 Ventolin 0.083% Nebulizer Soln - NEB Q4H PRN SHORT OF BREATH/WHEEZING Budesonide/Formoterol Fumarate 1 puff 08/15/16 22:00 08/16/16 11:05 Symbicort 80/4.5mcg - IH 1 puff BID JOB Administration Diazepam 5 mg 08/16/16 10:00 08/16/16 11:07 Valium - PO 5 mg DAILY JOB Administration Hydroxyzine Pamoate 50 mg 08/15/16 22:00 08/16/16 14:28 Vistaril - PO 50 mg TID JOB Administration Loperamide HCl 4 mg 08/15/16 19:45 Imodium - PO Q6H PRN DIARRHEA Methadone HCl 5 mg 08/18/16 06:00 Dolophine - PO 08/18/16 06:01 DAILY@0600 ONE Methadone HCl 10 mg 08/17/16 06:00 Dolophine - PO 08/17/16 06:01 DAILY@0600 JOB Methylprednisolone Sodium Succinate 40 mg 08/16/16 10:00 08/16/16 11:06 Solu-Medrol - IVPB 40 mg BID JOB Administration Nicotine Polacrilex 2 mg 08/15/16 22:12 08/16/16 11:06 Nicorette Gum - BUC 2 mg Q2H PRN Administration NICOTINE REPLACEMENT RX Pantoprazole Sodium 40 mg 08/16/16 10:00 08/16/16 11:06 Protonix - PO 40 mg DAILY JOB Administration Paroxetine HCl 10 mg 08/16/16 10:00 08/16/16 11:06 Paxil - PO 10 mg DAILY JOB Administration Pseudoephedrine/Triprolidine 1 combo 08/15/16 19:45 Actifed - PO Q4H PRN NASAL CONGESTION Quetiapine Fumarate 100 mg 08/16/16 10:00 08/16/16 11:06 Seroquel - PO 100 mg DAILY JOB Administration Thiamine HCl 100 mg 08/16/16 10:00 08/16/16 11:07 Vitamin B1 - PO 100 mg DAILY JOB Administration ASSESSMENT/PLAN: 70 year old female with a PMhx of asthma, anemia, drug abuse, sent over from [facility] due to anemia, hypoxia; found to be in acute respiratory failure and severely anemic. #hypercarbic respiratory failure secondary to asthma exacerbation may have COPD component ; -repeat ABG showing respiratory acidosis with metabolic alkalosis -continue biPAP for co2 removal - taper solmedrol down bid -cont albuterol/symbicort -albuterol neb q4h prn -troponins wnl -CXR wnl #anemia acute on chronic;r/o secondary causes of bleed; r/o malignancy -2 U PRBC -repeat cbc -iron studies -last colonoscopy 5 years ago; place unknown -rectal exam was some hardening with VIRI; unsure if it was a mass -GI consult #detox: -continue methadone 15mg -taper by 5 mg each day #depression: -cont home meds FEN: Fluids:po Electrolytes:wnl Diet: regular VTE: na Visit type - Emergency Visit Emergency Visit: Yes ED Registration Date: 08/15/16 Care time: The patient presented to the Emergency Department on the above date and was hospitalized for further evaluation of their emergent condition. - New Patient This patient is new to me today: No - Critical Care Critical Care patient: No
--- NOTE | 2016-08-16 16:34 | CON.GI ---
Consult Consult Specialty:: GI Referred by:: Hospitalist Reason for Consultation:: Anemia - History of Present Illness Chief Complaint: Patient is a poor historian and confused. could not obtain proper Chief Complaint History of Present Illness: 70F admitted at [facility] given her history of heroin abuse. found to be anemic. Admitted to [facility] through ER. Found to be anemic with hypoxia and altered MS. Called to evaluated further. She is lethargic at times and a poor historian. She denies bleeding / change in bowel habits. She has never had an upper endoscopy or colonoscopy. There is no family history of colon cancer. - History Source History Provided By: Patient, Medical Record Limitations to Obtaining History: Poor Historian - Past Medical History ...: No Psych: Yes: Addictions (Heroin abuse, ? history of alcohol abuse) - Past Surgical History Past Surgical History: Yes: - Alcohol/Substance Use Hx Alcohol Use: No - Smoking History Smoking history: Current every day smoker Have you smoked in the past 12 months: Yes Aproximately how many cigarettes per day: 7 Home Medications - Allergies Allergies/Adverse Reactions: Allergies Allergy/AdvReac Type Severity Reaction Status Date / Time ibuprofen Allergy Mild Nausea Verified 08/15/16 12:53 - Home Medications Home Medications: Ambulatory Orders Albuterol Sulfate Inhaler - [Ventolin Hfa Inhaler -] 1 - 2 inh PO QID 08/15/16 Albuterol Sulfate [Ventolin -] 2 mg PO TID 08/15/16 Ascorbic Acid [Vitamin C] 500 mg PO BID 08/15/16 Budesonide/Formeterol Fumarate [SYMBICORT 80/4.5mcg -] 1 inh PO BID 08/15/16 Diazepam [Valium] 5 mg PO DAILY 08/15/16 Diphenhydramine [Benadryl -] 50 mg PO DAILY 08/15/16 Ferrous Sulfate [Feosol] 325 mg PO DAILY 08/15/16 Hydroxyzine Pamoate [Vistaril -] 50 mg PO TID 08/15/16 Loperamide HCl [Imodium -] 4 mg PO ASDIR 08/15/16 Magnesium Hydrox 2400MG/30Ml [Milk of Magnesia -] 30 ml PO ONCE 08/15/16 Methadone (Detox) [Dolophine -] 15 mg PO DAILY 08/15/16 P-Ephed 60Mg/Triprolidi 2.5MG [Actifed -] 1 combo PO Q4H 08/15/16 Paroxetine HCl [Paxil -] 10 mg PO DAILY 08/15/16 Vit/Iron Fumarate/FA [ Tablet] 1 each PO DAILY 08/15/16 Quetiapine Fumarate [Seroquel] 100 tab PO DAILY 08/15/16 Thiamine HCl [Vitamin B1] 100 mg PO DAILY 08/15/16 Family Disease History - Family Disease History Family Disease History: Heart Disease: Brother (1 ([place]); PTSD), Other: Brother, Sister ( (Unknown reason).) Review of Systems Unable to obtain ROS, reason: Poor historian Physical Exam-GI Vital Signs: Vital Signs Temperature 98.1 F 08/16/16 16:24 Pulse Rate 76 08/16/16 16:24 Respiratory Rate 18 08/16/16 16:24 Blood Pressure 153/72 08/16/16 16:24 O2 Sat by Pulse Oximetry (%) 99 08/16/16 14:13 Constitutional: Yes: Calm Eyes: No: Sclera Icterus Cardiovascular: Yes: Regular Rate and Rhythm. No: Murmur Respiratory: Yes: Wheezes (bilaterally) Gastrointestinal Inspection: Yes: Scars (pelvic scar) ...Auscultate: Yes: Normoactive Bowel Sounds ...Palpate: Yes: Hepatomegaly (with indurated border of liver). No: Splenomegaly ...Percussion: No: Tympanitic ...Rectal Exam: Yes: Other (scant light brown sttol guaiac neg) Edema: No Neurological: Yes: Alert, Oriented (x person, partially to place and time) Labs: CBC, BMP 08/16/16 14:45 08/16/16 06:30 INR, PTT INR 1.10 (0.82-1.09) 08/15/16 14:04 Problem List - Problems (1) Anemia Assessment/Plan: Microcytic anemia with concomitant thrombocytopenia Low feeritin suggestive of iron deficiency ? liver disease, concomitant hematologic d/o Consider heme eval When patient's capacity is clarified as she is currently confused and medically optimized, EGD/Colonoscopy could be considered. I did discuss potential risks of the procedures with her like but not limited to bleeding, perforation requiring surgery to repair, infection, sedation medication effects all of which could be potentially life threatening. I was not sure if she understood what I was explaining Please recall when medically cleared for procedures and when it is clarified if she can give her own consents for elective procedures or alternate form of consent is arranged Code(s): D64.9 - ANEMIA, UNSPECIFIED (2) Hepatomegaly Assessment/Plan: With indurated border of liver noted Abdominal US Hepatitis serologies Code(s): R16.0 - HEPATOMEGALY, NOT ELSEWHERE CLASSIFIED
[2016-08-16 18:08] LABS: MCH 21.1 pg (25.7-33.7); MCHC 29.8 g/dl (32.0-36.0); MEAN CELL VOLUME 70.8 fl (80-96); MEAN PLT VOLUME 9.1 fl (7.5-11.1); PLATELET COUNT 77 K/MM3 (134-434); RDW 29.2 % (11.6-15.6); WHITE BLOOD COUNT 8.9 K/mm3 (4.0-10.0)
[2016-08-16] MEDS ORDERED: PT OWN MED DRAWER 7, Y5N ONE (21:32)
[2016-08-17] MEDS: hydrOXYzine PAMOATE 25 MG CAPSULE (FP) PO SCH ×3 (05:33→23:12)
[2016-08-17] MEDS ORDERED: METHADONE HCL 10 MG TABLET PO SCH (06:00)
[2016-08-17 07:15] LABS: BASOPHIL 0.5 % (0-2.0); MCH 21.3 pg (25.7-33.7); MCHC 29.6 g/dl (32.0-36.0); NEUTROPHILS 93.4 % (42.8-82.8); PLATELET COUNT 59 K/MM3 (134-434); RDW 29.6 % (11.6-15.6); WHITE BLOOD COUNT 8.2 K/mm3 (4.0-10.0)
[2016-08-17 08:07] LABS: SERUM IRON 37 ug/dL (27-139); TOTAL IRON BINDING CAPACITY 374 ug/dL (250-450); UIBC 337 ug/dL (118-369)
[2016-08-17 08:33] LABS: ALBUMIN 2.9 g/dl (3.4-5.0); ANION GAP 2 (8-16); CALCIUM 8.4 mg/dL (8.5-10.1); CO2 38 mmol/L (21-32); GLUCOSE,RANDOM 102 mg/dL (74-106)
[2016-08-17 08:36] LABS: ALK PHOS 65 U/L (45-117); BILIRUBIN,TOTAL 0.3 mg/dL (0.2-1.0); COCKROFT - GAULT 51.3995; CREATININE 0.9 mg/dL (0.55-1.02); SGOT/AST 19 U/L (15-37); SGPT/ALT 20 U/L (12-78); TOT PROT 6.3 g/dl (6.4-8.2)
[2016-08-17] MEDS ORDERED: QUEtiapine FUMARATE 50 MG TABLET ONE ×2 (08:48→10:50)
[2016-08-17] MEDS ORDERED: PT OWN MED DRAWER 7, Y5N ONE (08:49)
[2016-08-17] MEDS ORDERED: predniSONE 20 MG TABLET (UD) PO SCH (10:00)
[2016-08-17] MEDS: PANTOPRAZOLE 40 MG TABLET (FP) PO SCH (10:45)
[2016-08-17] MEDS: THIAMINE HCL 100 MG TABLET (FP) PO SCH (10:45)
[2016-08-17] MEDS: diazePAM 5 MG TABLET PO SCH (10:48)
[2016-08-17] MEDS: FERROUS SO4 325 MG TABLET (FP) PO SCH ×3 (10:49→17:40)
[2016-08-17] MEDS: BUDESONIDE/FORMETEROL FUMARATE 80/4.5 mcg INHALER IH SCH (10:51)
[2016-08-17] MEDS: PARoxetine HCL 10 MG TABLET (FP) PO SCH ×2 (10:51→13:43)
[2016-08-17] MEDS: QUEtiapine FUMARATE 100 MG TABLET (FP) PO SCH (10:51)
--- NOTE | 2016-08-17 11:21 | PN ---
Physical Exam: SUBJECTIVE: Patient seen and examined OBJECTIVE: Vital Signs Period Temp Pulse Resp BP Sys/Killian Pulse Ox Last 24 Hr 97.6 F-98.4 F 76-90 18-20 121-153/64-75 99-100 GENERAL: The patient is awake, alert, and fully oriented, in no acute distress. HEAD: Normal with no signs of trauma.. NECK: Trachea midline, full range of motion, supple. LUNGS: Breath sounds decrease; scattered wheezing ,chest tightness HEART: Regular rate and rhythm, S1, S2 without murmur, rub or gallop. ABDOMEN: Soft, nontender, nondistended, normoactive bowel sounds, no guarding, no rebound, no hepatosplenomegaly, no masses. EXTREMITIES: 2+ pulses, warm, well-perfused, no edema. NEUROLOGICAL: Cranial nerves II through XII grossly intact. Normal speech, gait not observed. PSYCH: Normal mood, normal affect. SKIN: Warm, dry, normal turgor, no rashes or lesions noted CBC, BMP 08/17/16 05:35 08/17/16 05:35 Active Medications Generic Name Dose Route Start Last Admin Trade Name Freq PRN Reason Stop Dose Admin Albuterol Sulfate 1 amp 08/15/16 19:44 Ventolin 0.083% Nebulizer Soln - NEB Q4H PRN SHORT OF BREATH/WHEEZING Albuterol Sulfate 1 amp 08/17/16 12:00 Ventolin 0.083% Nebulizer Soln - NEB QIDR JOB Budesonide/Formoterol Fumarate 1 puff 08/15/16 22:00 08/17/16 10:51 Symbicort 80/4.5mcg - IH 1 puff BID JOB Administration Diazepam 5 mg 08/16/16 10:00 08/17/16 10:48 Valium - PO 5 mg DAILY JOB Administration Ferrous Sulfate 325 mg 08/17/16 12:00 08/17/16 10:49 Feosol - PO 325 mg TIDCM JOB Administration Hydroxyzine Pamoate 50 mg 08/15/16 22:00 08/17/16 05:33 Vistaril - PO Not Given TID JOB Loperamide HCl 4 mg 08/15/16 19:45 Imodium - PO Q6H PRN DIARRHEA Methadone HCl 5 mg 08/18/16 06:00 Dolophine - PO 08/18/16 06:01 DAILY@0600 ONE Methylprednisolone Sodium Succinate 40 mg 08/17/16 22:00 Solu-Medrol - IVPB BID JOB Nicotine Polacrilex 2 mg 08/15/16 22:12 08/16/16 21:43 Nicorette Gum - BUC 2 mg Q2H PRN Administration NICOTINE REPLACEMENT RX Pantoprazole Sodium 40 mg 08/16/16 10:00 08/17/16 10:45 Protonix - PO 40 mg DAILY JOB Administration Paroxetine HCl 10 mg 08/16/16 10:00 08/17/16 10:51 Paxil - PO Not Given DAILY JOB Pseudoephedrine/Triprolidine 1 combo 08/15/16 19:45 Actifed - PO Q4H PRN NASAL CONGESTION Quetiapine Fumarate 100 mg 08/16/16 10:00 08/17/16 10:51 Seroquel - PO 100 mg DAILY JOB Administration Thiamine HCl 100 mg 08/16/16 10:00 08/17/16 10:45 Vitamin B1 - PO 100 mg DAILY JOB Administration ASSESSMENT/PLAN: 70 year old female with a PMhx of asthma, anemia, drug abuse, sent over from [facility] due to anemia, hypoxia; found to be in acute respiratory failure and severely anemic. #hypercarbic respiratory failure secondary to asthma exacerbation may have COPD component ; -repeat ABG today to assess need for BiPaP -solumedrol 40mg IVPB bid -cont albuterol/symbicort -albuterol neb sched/q4h prn -troponins wnl -CXR wnl #anemia acute on chronic;r/o secondary causes of bleed; r/o malignancy -2 U PRBC on admission; -heme decreased today; repeat h/h this afternoon -iron supplement -last colonoscopy 5 years ago; place unknown -abdominal US/Pelvic pending -hep a,b,c, pending -GI consult: mental status AAOx3; able to make decision ; will need endoscopy/ colonoscopy #detox: -continue methadone 15mg -taper by 5 mg each day #depression: -cont home meds FEN: Fluids:po Electrolytes:wnl Diet: regular VTE: na Disposition: trend cbc; pending scope Visit type - Emergency Visit Emergency Visit: Yes ED Registration Date: 08/15/16 Care time: The patient presented to the Emergency Department on the above date and was hospitalized for further evaluation of their emergent condition. - New Patient This patient is new to me today: No - Critical Care Critical Care patient: No
[2016-08-17] MEDS: ALBUTEROL SO4 0.083% IH SOL 2.5 MG/3 ML VIAL.NEB. NEB SCH ×2 (11:25→18:20)
--- NOTE | 2016-08-17 11:28 | PN ---
Teaching Attending Note Name of Resident: Bessy Martinez ATTENDING PHYSICIAN STATEMENT I saw and evaluated the patient. I reviewed the resident's note and discussed the case with the resident. I agree with the resident's findings and plan as documented. SUBJECTIVE:more alert today. states she feels her breathing has improved but still requiring oxygen. denies CP, cough,fever, chills, N/V/C/D, melena or BRBPR. normal BM yesterday OBJECTIVE: Last Vital Signs Temp Pulse Resp BP Pulse Ox 98.1 F 80 20 144/71 99 08/17/16 10:00 08/17/16 10:00 08/17/16 10:00 08/17/16 10:00 08/17/16 09:00 General NAD, A&Ox2 (self and location) CV S1 S2 RRR no murmur/rub/gallop. +pectus excavatum Lungs coarse breath sounds diffusely. mild wheezing, poor inspiratory effort Abdomen soft NT/ND no masses ASSESSMENT AND PLAN: 70yo F with PMH Continuous heroin dependence, anemia and depression presented to the ER and was admitted for further evaluation for their emergent condition 1. Symptomatic anemia-s/p 2 unit PRBC. Hgb improved but dropped this AM. repeat CBC this afternoon. plan for colonoscopy once more medically stable. likely saturday as mental status continues to improve. GI on board. txn for Hgb <7. 2. Acute hypoxic hypercapnic respiratory failure-component of anemia vs possible COPD exacerbation. taken off bipap yesterday. repeat ABG showing Co2 75. ordered one now. however mental status has improved. check CT chest to further evaluate. none here in the past. cont steroids current dosing. nebs prn. maintain spO2 >90% 3. Continuous heroin dependence- on methadone taper. will complete tomorrow. 4. DM- A1c 7.6 newly diagnosed here. dietary consult. start iss, bgm. will start oral medications on discharge 5. Hypophosphatemia- neutraphos 6. Malnourrished- dietary eval. 7. depression- cont home medication 8. DVT ppx- SCD. hold pharmacological anticoagulation
[2016-08-17] MEDS ORDERED: NAPH,MB-DB/K PH,MBDB POWDER PACKET PO ONE (11:43)
[2016-08-17 12:03] LABS: ARTERIAL BLD GAS O2 SATURATION 99.2 % (90-98.9); ARTERIAL BLOOD GAS BASE EXCESS 6.2 meq/l (-2-2); ARTERIAL BLOOD GAS HCO3 33.8 meq/L (22-26); ARTERIAL BLOOD GAS pH 7.27 (7.35-7.45)
[2016-08-17 12:04] LABS: ALLENS TEST POSITIVE; ART PUNCT SITE LEFT RADIAL; LPM/O2% 4L; PT. ON O2? YES; TYPE OF O2 NASAL CANNULA
--- NOTE | 2016-08-17 15:09 | PN ---
GI Progress Note Subjective: GI NOte: Cheyenne is alert but impossible to comprehend through her CPAP mask which I did not remove. I informed her of the need to evaluate her UGI tract and colon for a source of her anemia and as screening for varices and colon cancer. She believes that she had endoscopy before but cannot provide any specifics. Given her respiratory situation and unclear mental status she is not a candidiate for elective endoscopy at this time . Sonogram reveals liver cysts but no masses or gallstones. Only trace ascites is seen. - Objective Vital Signs: Vital Signs Temperature 98.1 F 08/17/16 10:00 Pulse Rate 78 08/17/16 13:30 Respiratory Rate 20 08/17/16 10:00 Blood Pressure 144/71 08/17/16 10:00 O2 Sat by Pulse Oximetry (%) 90 L 08/17/16 13:30 Constitutional: Thin ...Auscultate: Yes: Normoactive Bowel Sounds ...Palpate: Yes: Soft, Other (nontender) Labs: CBC, BMP 08/17/16 05:35 08/17/16 05:35 INR, PTT INR 1.10 (0.82-1.09) 08/15/16 14:04 Laboratory Tests 08/15/16 08/16/16 08/17/16 14:04 17:40 05:35 Hgb 8.3 L Hct 27.9 L Plt Count 77 L 59 L D INR 1.10 Total Bilirubin AST ALT Alkaline Phosphatase Albumin 08/17/16 05:35 Hgb Hct Plt Count INR Total Bilirubin 0.3 D AST 19 D ALT 20 Alkaline Phosphatase 65 Albumin 2.9 L Assessment/Plan Will reevaluate for endoscopies when mental and respiratory situation permits. Will order AFP and ammonia levels. Dr Alberto will be covering this weekend. Please call him as needed
[2016-08-17] MEDS: INSULIN SLIDING SCALE (NOVOLOG) 1 VIAL SQ SCH (16:11)
[2016-08-17 16:47] LABS: MCH 21.6 pg (25.7-33.7); MCHC 29.9 g/dl (32.0-36.0); MEAN CELL VOLUME 72.1 fl (80-96); MEAN PLT VOLUME 9.9 fl (7.5-11.1); PLATELET COUNT 73 K/MM3 (134-434); RDW 30.3 % (11.6-15.6); WHITE BLOOD COUNT 8.9 K/mm3 (4.0-10.0)
[2016-08-17 21:54] LABS: PLATELET ESTIMATE DECREASED (NORMAL); POLYCHROMASIA 3+
[2016-08-17 21:55] LABS: ANISOCYTOSIS 3+; HYPOCHROMIA 3+; MICROCYTOSIS 3+; POIKILOCYTOSIS 3+
[2016-08-17] MEDS: methylPREDNISolone NA SUCC 40 MG/1 ML VIAL IVPB SCH (23:12)
[2016-08-18] MEDS: ALBUTEROL SO4 0.083% IH SOL 2.5 MG/3 ML VIAL.NEB. NEB SCH ×4 (00:15→17:22)
[2016-08-18] MEDS: INSULIN SLIDING SCALE (NOVOLOG) 1 VIAL SQ SCH ×4 (05:47→21:35)
[2016-08-18] MEDS: BUDESONIDE/FORMETEROL FUMARATE 80/4.5 mcg INHALER IH SCH ×3 (05:48→21:35)
[2016-08-18] MEDS: hydrOXYzine PAMOATE 25 MG CAPSULE (FP) PO SCH (05:52)
[2016-08-18] MEDS ORDERED: METHADONE HCL 10 MG TABLET PO ONE (06:00)
[2016-08-18 06:06] LABS: HEP B SURFACE AB Non Reactive (.)
[2016-08-18 08:04] LABS: MCH 21.3 pg (25.7-33.7); MCHC 29.4 g/dl (32.0-36.0); MEAN CELL VOLUME 72.5 fl (80-96); MEAN PLT VOLUME 9.3 fl (7.5-11.1); PLATELET COUNT 71 K/MM3 (134-434); RDW 30.9 % (11.6-15.6); WHITE BLOOD COUNT 7.4 K/mm3 (4.0-10.0)
[2016-08-18 08:47] LABS: CALCIUM 8.6 mg/dL (8.5-10.1); COCKROFT - GAULT 57.8255; CREATININE 0.8 mg/dL (0.55-1.02)
[2016-08-18] MEDS ORDERED: QUEtiapine FUMARATE 50 MG TABLET ONE (09:38)
[2016-08-18] MEDS: THIAMINE HCL 100 MG TABLET (FP) PO SCH (09:41)
[2016-08-18] MEDS: methylPREDNISolone NA SUCC 40 MG/1 ML VIAL IVPB SCH ×2 (09:41→21:35)
[2016-08-18] MEDS: PARoxetine HCL 10 MG TABLET (FP) PO SCH (09:42)
[2016-08-18] MEDS: PANTOPRAZOLE 40 MG TABLET (FP) PO SCH (09:42)
[2016-08-18] MEDS: QUEtiapine FUMARATE 100 MG TABLET (FP) PO SCH (09:42)
[2016-08-18] MEDS: FERROUS SO4 325 MG TABLET (FP) PO SCH ×3 (09:42→17:11)
[2016-08-18] MEDS: diazePAM 5 MG TABLET PO SCH (09:55)
--- NOTE | 2016-08-18 10:03 | PN ---
Progress Note (short form) - Note Progress Note: currently asymptomatic. denies CP, SOB,fever, chills, cough, N/V/C/D, no BM in 24H Current Medications Generic Name Dose Route Start Last Admin Trade Name Freq PRN Reason Stop Dose Admin Albuterol Sulfate 1 amp 08/15/16 19:44 Ventolin 0.083% Nebulizer Soln - NEB Q4H PRN SHORT OF BREATH/WHEEZING Albuterol Sulfate 1 amp 08/17/16 12:00 08/18/16 07:13 Ventolin 0.083% Nebulizer Soln - NEB 1 amp QIDR JOB Administration Budesonide/Formoterol Fumarate 1 puff 08/15/16 22:00 08/18/16 09:45 Symbicort 80/4.5mcg - IH 1 puff BID JOB Administration Diazepam 5 mg 08/16/16 10:00 08/18/16 09:55 Valium - PO 5 mg DAILY JOB Administration Ferrous Sulfate 325 mg 08/17/16 12:00 08/18/16 09:42 Feosol - PO 325 mg TIDCM JOB Administration Hydroxyzine Pamoate 50 mg 08/15/16 22:00 08/18/16 05:52 Vistaril - PO 50 mg TID JOB Administration Insulin Aspart 1 vial 08/17/16 16:30 08/18/16 05:47 Novolog Vial Sliding Scale - SQ Not Given ACHS [facility] Protocol Loperamide HCl 4 mg 08/15/16 19:45 Imodium - PO Q6H PRN DIARRHEA Methylprednisolone Sodium Succinate 40 mg 08/17/16 22:00 08/18/16 09:41 Solu-Medrol - IVPB 40 mg BID JOB Administration Nicotine Polacrilex 2 mg 08/15/16 22:12 08/16/16 21:43 Nicorette Gum - BUC 2 mg Q2H PRN Administration NICOTINE REPLACEMENT RX Pantoprazole Sodium 40 mg 08/16/16 10:00 08/18/16 09:42 Protonix - PO 40 mg DAILY JOB Administration Paroxetine HCl 10 mg 08/16/16 10:00 08/18/16 09:42 Paxil - PO 10 mg DAILY JOB Administration Pseudoephedrine/Triprolidine 1 combo 08/15/16 19:45 Actifed - PO Q4H PRN NASAL CONGESTION Quetiapine Fumarate 100 mg 08/16/16 10:00 08/18/16 09:42 Seroquel - PO 100 mg DAILY JOB Administration Thiamine HCl 100 mg 08/16/16 10:00 08/18/16 09:41 Vitamin B1 - PO 100 mg DAILY JOB Administration Last Vital Signs Temp Pulse Resp BP Pulse Ox 98 F 75 20 122/65 95 08/18/16 05:00 08/18/16 05:00 08/18/16 05:00 08/18/16 05:00 08/17/16 21:00 General NAD, A&Ox3 CV S1 S2 RRR no murmur/rub/gallop. +pectus excavatum Lungs coarse breath sounds diffusely, poor inspiratory effort Abdomen soft NT/ND no masses CBCD WBC 7.4 K/mm3 (4.0-10.0) 08/18/16 06:00 RBC 3.67 M/mm3 (3.60-5.2) 08/18/16 06:00 Hgb 7.8 GM/dL (10.7-15.3) L 08/18/16 06:00 Hct 26.6 % (32.4-45.2) L 08/18/16 06:00 MCV 72.5 fl (80-96) L 08/18/16 06:00 MCHC 29.4 g/dl (32.0-36.0) L 08/18/16 06:00 RDW 30.9 % (11.6-15.6) H 08/18/16 06:00 Plt Count 71 K/MM3 (134-434) L 08/18/16 06:00 MPV 9.3 fl (7.5-11.1) 08/18/16 06:00 CMP Sodium 145 mmol/L (136-145) 08/18/16 06:00 Potassium 4.6 mmol/L (3.5-5.1) 08/18/16 06:00 Chloride 103 mmol/L (98-107) 08/18/16 06:00 Carbon Dioxide 36 mmol/L (21-32) H 08/18/16 06:00 Anion Gap 6 (8-16) L 08/18/16 06:00 BUN 20 mg/dL (7-18) H 08/18/16 06:00 Creatinine 0.8 mg/dL (0.55-1.02) 08/18/16 06:00 Creat Clearance w eGFR > 60 (>60) 08/17/16 05:35 Calcium 8.6 mg/dL (8.5-10.1) 08/18/16 06:00 Total Bilirubin 0.3 mg/dL (0.2-1.0) D 08/17/16 05:35 AST 19 U/L (15-37) D 08/17/16 05:35 ALT 20 U/L (12-78) 08/17/16 05:35 Alkaline Phosphatase 65 U/L (45-117) 08/17/16 05:35 Total Protein 6.3 g/dl (6.4-8.2) L 08/17/16 05:35 Albumin 2.9 g/dl (3.4-5.0) L 08/17/16 05:35 ASSESSMENT AND PLAN: 70yo F with PMH Continuous heroin dependence, anemia and depression presented to the ER and was admitted for further evaluation for their emergent condition 1. Symptomatic anemia-s/p 2 unit PRBC. Hgb remains low but stable. no signs of bleeding. plan for colonoscopy possibly saturday now that mental status has improved. GI on board. txn for Hgb <7. 2. Acute hypoxic hypercapnic respiratory failure-component of anemia vs possible COPD exacerbation. CO2 on repeat ABG remains elevated however mental status is improved. saturating 95% on 2L NC. CT chest pending. will f/u official results. bipap prn and QHS. cont steroids current dosing. nebs prn. maintain spO2 >90% 3. Continuous heroin dependence- completes methadone taper today. monitor for signs of withdrawal 4. DM- A1c 7.6 newly diagnosed here. dietary consult. start iss, bgm. will start oral medications on discharge 5. Hypophosphatemia- resolved 6. Malnourrished- dietary eval. glucerna, MVI, thiamine 7. depression- cont home medication 8. DVT ppx- SCD. hold pharmacological anticoagulation Visit type - Emergency Visit Emergency Visit: Yes ED Registration Date: 08/15/16 Care time: The patient presented to the Emergency Department on the above date and was hospitalized for further evaluation of their emergent condition. - New Patient This patient is new to me today: No - Critical Care Critical Care patient: No - Discharge Referral Referred to [facility] Med P.C.: No
[2016-08-18] MEDS: NICOTINE POLACRILEX 2 MG GUM BUC PRN (20:28)
[2016-08-19] MEDS: ALBUTEROL SO4 0.083% IH SOL 2.5 MG/3 ML VIAL.NEB. NEB SCH ×5 (00:09→23:12)
[2016-08-19] MEDS: INSULIN SLIDING SCALE (NOVOLOG) 1 VIAL SQ SCH ×4 (06:00→22:12)
[2016-08-19] MEDS: FERROUS SO4 325 MG TABLET (FP) PO SCH ×3 (07:43→18:12)
[2016-08-19] MEDS ORDERED: PT OWN MED DRAWER 7, Y5N ONE (08:10)
[2016-08-19] MEDS ORDERED: QUEtiapine FUMARATE 50 MG TABLET ONE (08:10)
[2016-08-19 08:19] LABS: MCH 21.6 pg (25.7-33.7); MCHC 29.9 g/dl (32.0-36.0); MEAN CELL VOLUME 72.2 fl (80-96); MEAN PLT VOLUME 9.6 fl (7.5-11.1); PLATELET COUNT 101 K/MM3 (134-434); WHITE BLOOD COUNT 6.3 K/mm3 (4.0-10.0)
[2016-08-19 08:46] LABS: CALCIUM 8.8 mg/dL (8.5-10.1); COCKROFT - GAULT 57.8255; CREATININE 0.8 mg/dL (0.55-1.02)
[2016-08-19] MEDS: PANTOPRAZOLE 40 MG TABLET (FP) PO SCH (09:02)
[2016-08-19] MEDS: MULTIVITAMINS (DAILY MVI) TABLET (FP) PO SCH (09:02)
[2016-08-19] MEDS: THIAMINE HCL 100 MG TABLET (FP) PO SCH (09:02)
[2016-08-19] MEDS: methylPREDNISolone NA SUCC 40 MG/1 ML VIAL IVPB SCH ×2 (09:02→10:22)
[2016-08-19] MEDS: diazePAM 5 MG TABLET PO SCH (09:02)
[2016-08-19] MEDS: QUEtiapine FUMARATE 100 MG TABLET (FP) PO SCH (09:02)
[2016-08-19] MEDS: PARoxetine HCL 10 MG TABLET (FP) PO SCH (09:03)
[2016-08-19] MEDS: NICOTINE POLACRILEX 2 MG GUM BUC PRN (09:10)
--- NOTE | 2016-08-19 09:36 | PN ---
Progress Note (short form) - Note Progress Note: c/o lethargy. refused to wear bipap overnight. states she does not have difficulty breathing. no reports of melena or BRBPR denies CP, SOB,fever, chills , cough, N/V/C/D, BM yesterday Current Medications Generic Name Dose Route Start Last Admin Trade Name Freq PRN Reason Stop Dose Admin Albuterol Sulfate 1 amp 08/15/16 19:44 Ventolin 0.083% Nebulizer Soln - NEB Q4H PRN SHORT OF BREATH/WHEEZING Albuterol Sulfate 1 amp 08/17/16 12:00 08/19/16 06:31 Ventolin 0.083% Nebulizer Soln - NEB 1 amp QIDR JOB Administration Budesonide/Formoterol Fumarate 2 puff 08/19/16 10:00 Symbicort 160/4.5mcg - IH BID JOB Diazepam 5 mg 08/16/16 10:00 08/19/16 09:02 Valium - PO 5 mg DAILY JOB Administration Ferrous Sulfate 325 mg 08/17/16 12:00 08/19/16 07:43 Feosol - PO 325 mg TIDCM JOB Administration Hydroxyzine Pamoate 50 mg 08/18/16 12:49 Vistaril - PO TID PRN WITHDRAWAL(CONT SUBST) Insulin Aspart 1 vial 08/17/16 16:30 08/19/16 06:00 Novolog Vial Sliding Scale - SQ Not Given ACHS [facility] Protocol Loperamide HCl 4 mg 08/15/16 19:45 Imodium - PO Q6H PRN DIARRHEA Methylprednisolone Sodium Succinate 40 mg 08/17/16 22:00 08/19/16 09:02 Solu-Medrol - IVPB 40 mg BID JOB Administration Multivitamins/Minerals/Vitamin C 1 tab 08/19/16 10:00 08/19/16 09:02 Tab-A-Vit - PO 1 tab DAILY JOB Administration Nicotine Polacrilex 2 mg 08/15/16 22:12 08/19/16 09:10 Nicorette Gum - BUC 2 mg Q2H PRN Administration NICOTINE REPLACEMENT RX Pantoprazole Sodium 40 mg 08/16/16 10:00 08/19/16 09:02 Protonix - PO 40 mg DAILY JOB Administration Paroxetine HCl 10 mg 08/16/16 10:00 08/19/16 09:03 Paxil - PO 10 mg DAILY JOB Administration Pseudoephedrine/Triprolidine 1 combo 08/15/16 19:45 Actifed - PO Q4H PRN NASAL CONGESTION Quetiapine Fumarate 100 mg 08/16/16 10:00 08/19/16 09:02 Seroquel - PO 100 mg DAILY JOB Administration Thiamine HCl 100 mg 08/16/16 10:00 08/19/16 09:02 Vitamin B1 - PO 100 mg DAILY JOB Administration Last Vital Signs Temp Pulse Resp BP Pulse Ox 98 F 72 18 142/66 100 08/19/16 06:00 08/19/16 06:00 08/19/16 06:00 08/19/16 06:00 08/19/16 06:00 General NAD, A&Ox3 CV S1 S2 RRR no murmur/rub/gallop. +pectus excavatum Lungs CTA B/L no wheezing/rales/rhonchi Abdomen soft NT/ND no masses CBCD WBC 6.3 K/mm3 (4.0-10.0) 08/19/16 06:00 RBC 3.86 M/mm3 (3.60-5.2) 08/19/16 06:00 Hgb 8.3 GM/dL (10.7-15.3) L 08/19/16 06:00 Hct 27.9 % (32.4-45.2) L 08/19/16 06:00 MCV 72.2 fl (80-96) L 08/19/16 06:00 MCHC 29.9 g/dl (32.0-36.0) L 08/19/16 06:00 RDW 33.0 % (11.6-15.6) H 08/19/16 06:00 Plt Count 101 K/MM3 (134-434) L D 08/19/16 06:00 MPV 9.6 fl (7.5-11.1) 08/19/16 06:00 CMP Sodium 146 mmol/L (136-145) H 08/19/16 06:00 Potassium 4.9 mmol/L (3.5-5.1) 08/19/16 06:00 Chloride 101 mmol/L (98-107) 08/19/16 06:00 Carbon Dioxide 39 mmol/L (21-32) H 08/19/16 06:00 Anion Gap 6 (8-16) L 08/19/16 06:00 BUN 20 mg/dL (7-18) H 08/19/16 06:00 Creatinine 0.8 mg/dL (0.55-1.02) 08/19/16 06:00 Creat Clearance w eGFR > 60 (>60) 08/17/16 05:35 Calcium 8.8 mg/dL (8.5-10.1) 08/19/16 06:00 Total Bilirubin 0.3 mg/dL (0.2-1.0) D 08/17/16 05:35 AST 19 U/L (15-37) D 08/17/16 05:35 ALT 20 U/L (12-78) 08/17/16 05:35 Alkaline Phosphatase 65 U/L (45-117) 08/17/16 05:35 Total Protein 6.3 g/dl (6.4-8.2) L 08/17/16 05:35 Albumin 2.9 g/dl (3.4-5.0) L 08/17/16 05:35 ASSESSMENT AND PLAN: 70yo F with PMH Continuous heroin dependence, anemia and depression presented to the ER and was admitted for further evaluation for their emergent condition 1. Symptomatic anemia-s/p 2 unit PRBC. Hgb remains low but stable. no signs of bleeding. will call GI to d/w them about colonoscopy tomorrow. start on clear liquid diet. NPO tonight. GI on board. txn for Hgb <7. 2. Acute hypoxic hypercapnic respiratory failure-component of anemia vs possible COPD exacerbation. mental status has improved. refusing to use bipap. likely this is her baseline. CT chest showing pulmonary HTN and emphysema. will increase symbicort and decrease steroids to daily dosing as no wheezing appreciated today. saturating 97% on RA. encourage BIPAP at night time. 3. Pulmonary nodule- 1.2x1x1 nodule PENNY, will need repeat CT scan 4. Continuous heroin dependence- methadone detox completed yesterday. no signs of withdrawal. 5. DM- A1c 7.6 newly diagnosed here. dietary consult. start iss, bgm. 6. Hypophosphatemia- resolved 7. Malnourished- dietary eval. glucerna, MVI, thiamine 8. depression- cont home medication 9. DVT ppx- SCD. hold pharmacological anticoagulation Visit type - Emergency Visit Emergency Visit: Yes ED Registration Date: 08/15/16 Care time: The patient presented to the Emergency Department on the above date and was hospitalized for further evaluation of their emergent condition. - New Patient This patient is new to me today: No - Critical Care Critical Care patient: No - Discharge Referral Referred to [facility] Med P.C.: No
[2016-08-19] MEDS: BUDESONIDE/FORMETEROL FUMARATE 160/4.5 mcg INHALER IH SCH ×3 (10:22→23:14)
[2016-08-20] MEDS: INSULIN SLIDING SCALE (NOVOLOG) 1 VIAL SQ SCH ×4 (06:04→21:54)
[2016-08-20] MEDS: ALBUTEROL SO4 0.083% IH SOL 2.5 MG/3 ML VIAL.NEB. NEB SCH ×3 (06:45→22:36)
[2016-08-20 07:47] LABS: MCH 21.8 pg (25.7-33.7); MCHC 30.1 g/dl (32.0-36.0); MEAN CELL VOLUME 72.4 fl (80-96); MEAN PLT VOLUME 9.3 fl (7.5-11.1); PLATELET COUNT 101 K/MM3 (134-434); RDW 34.1 % (11.6-15.6); WHITE BLOOD COUNT 6.5 K/mm3 (4.0-10.0)
[2016-08-20 08:20] LABS: CALCIUM 8.7 mg/dL (8.5-10.1); CREATININE 0.7 mg/dL (0.55-1.02)
[2016-08-20] MEDS ORDERED: QUEtiapine FUMARATE 50 MG TABLET ONE (09:00)
[2016-08-20] MEDS ORDERED: PT OWN MED DRAWER 7, Y5N ONE ×2 (09:01→14:35)
[2016-08-20] MEDS: MULTIVITAMINS (DAILY MVI) TABLET (FP) PO SCH (09:09)
[2016-08-20] MEDS: BUDESONIDE/FORMETEROL FUMARATE 160/4.5 mcg INHALER IH SCH ×2 (09:09→21:57)
[2016-08-20] MEDS: methylPREDNISolone NA SUCC 40 MG/1 ML VIAL IVPB SCH (09:10)
[2016-08-20] MEDS: QUEtiapine FUMARATE 100 MG TABLET (FP) PO SCH (09:10)
[2016-08-20] MEDS: PARoxetine HCL 10 MG TABLET (FP) PO SCH (09:10)
[2016-08-20] MEDS: FERROUS SO4 325 MG TABLET (FP) PO SCH ×3 (09:10→16:52)
[2016-08-20] MEDS: THIAMINE HCL 100 MG TABLET (FP) PO SCH (09:10)
[2016-08-20] MEDS: PANTOPRAZOLE 40 MG TABLET (FP) PO SCH (09:11)
[2016-08-20] MEDS: diazePAM 5 MG TABLET PO SCH (09:11)
[2016-08-20] MEDS ORDERED: BISACODYL 5 MG TABLET.DR (FP) PO ONE (11:00)
[2016-08-20] MEDS ORDERED: ALBUTEROL SO4 0.083% IH SOL 2.5 MG/3 ML VIAL.NEB. NEB PRN (11:20)
--- NOTE | 2016-08-20 12:17 | PN ---
Teaching Attending Note Name of Resident: Bessy Martinez ATTENDING PHYSICIAN STATEMENT I saw and evaluated the patient. I reviewed the resident's note and discussed the case with the resident. I agree with the resident's findings and plan as documented. SUBJECTIVE:feels generalized weakness, ok ambulating to the bathroom. denies CP , SOB,fever, chills, melena, BRBPR OBJECTIVE: Last Vital Signs Temp Pulse Resp BP Pulse Ox 98.3 F 83 18 147/64 88 L 08/20/16 11:00 08/20/16 11:00 08/20/16 11:00 08/20/16 11:00 08/20/16 11:00 General NAD, A&O x3 CV S1 S2 RRR no murmur/rub/gallop ABdomen soft NT/ND no rebound or guarding ASSESSMENT AND PLAN: 70yo F with PMH Continuous heroin dependence, anemia and depression presented to the ER and was admitted for further evaluation for their emergent condition 1. Symptomatic anemia-s/p 2 unit PRBC. Hgb stable. no signs of bleeding. will call GI to d/w them about colonoscopy. if unable to perform inpatient will consider CT with contrast to further evaluate. GI on board. txn for Hgb <7. 2. Acute hypoxic hypercapnic respiratory failure-component of anemia vs possible COPD exacerbation. mental status is back to baseline. likely CO2 retainer. saturating well on NC. will check pre and post. on symbicort. PFT workup as outpatient. encourage BIPAP at night time. 3. Pulmonary nodule- 1.2x1x1 nodule PENNY, will need repeat CT scan in 3 months 4. Continuous heroin dependence- methadone detox completed. not interested in inpatient rehab. no signs of withdrawal. 5. DM- A1c 7.6 newly diagnosed here. dietary consult. start iss, bgm. will hold oral agents as may do CT with contrast 6. Hypophosphatemia- resolved 7. Severe protein-calorie Malnourished- dietary eval. glucerna, MVI, thiamine 8. depression- cont home medication 9. DVT ppx- SCD. hold pharmacological anticoagulation 10. PT eval. may require YG on discharge
[2016-08-20] MEDS ORDERED: PEG3350/SOD SULF,BICARB,CL/KCL 4,000 ML SOLN.RECON PO ONE (15:00)
--- NOTE | 2016-08-20 19:46 | PN ---
GI Progress Note Subjective: Patient awake, no acute events No abdominal pain More awake. She tells me that she had a colonoscopy less than 5 years ago - Objective Vital Signs: Vital Signs Temperature 98.9 F 08/20/16 18:00 Pulse Rate 82 08/20/16 18:00 Respiratory Rate 22 08/20/16 18:00 Blood Pressure 111/50 08/20/16 18:00 O2 Sat by Pulse Oximetry (%) 88 L 08/20/16 11:00 Constitutional: Calm Eyes: No: Sclera Icterus Cardiovascular: Yes: Regular Rate and Rhythm Respiratory: Yes: CTA Bilaterally Gastrointestinal Inspection: No: Distention ...Auscultate: Yes: Normoactive Bowel Sounds ...Palpate: No: Tenderness Edema: No Labs: CBC, BMP 08/20/16 06:00 08/20/16 06:00 INR, PTT INR 1.10 (0.82-1.09) 08/15/16 14:04 Problem List - Problems (1) Anemia Assessment/Plan: Discussed EGD/Colonoscopy with Ms. Dover. Discussed potential risks of the procedure like but not limited to bleeding, perforation requiring surgery to repair, infection, sedation medication effects all of which could be potentially life threatening. She has agreed to the procedures. Code(s): D64.9 - ANEMIA, UNSPECIFIED (2) Hepatomegaly Code(s): R16.0 - HEPATOMEGALY, NOT ELSEWHERE CLASSIFIED
[2016-08-21] MEDS: INSULIN SLIDING SCALE (NOVOLOG) 1 VIAL SQ SCH ×4 (06:56→22:00)
[2016-08-21] MEDS: ALBUTEROL SO4 0.083% IH SOL 2.5 MG/3 ML VIAL.NEB. NEB SCH ×3 (07:03→22:12)
[2016-08-21 08:15] LABS: MCH 21.2 pg (25.7-33.7); MCHC 29.4 g/dl (32.0-36.0); MEAN CELL VOLUME 72.3 fl (80-96); MEAN PLT VOLUME 9.4 fl (7.5-11.1); PLATELET COUNT 126 K/MM3 (134-434); RDW 35.1 % (11.6-15.6); WHITE BLOOD COUNT 7.3 K/mm3 (4.0-10.0)
[2016-08-21 08:39] LABS: ALBUMIN 2.5 g/dl (3.4-5.0); ANION GAP 5 (8-16); CALCIUM 8.6 mg/dL (8.5-10.1); CO2 40 mmol/L (21-32); GLUCOSE,RANDOM 80 mg/dL (74-106)
[2016-08-21 08:43] LABS: ALK PHOS 52 U/L (45-117); BILIRUBIN,TOTAL 0.3 mg/dL (0.2-1.0); CREATININE 0.7 mg/dL (0.55-1.02); SGOT/AST 21 U/L (15-37); SGPT/ALT 23 U/L (12-78); TOT PROT 5.4 g/dl (6.4-8.2)
[2016-08-21 08:47] LABS: INR 1.2 (0.82-1.09); PROTHROMBIN TIME (PATIENT) 13.2 SEC (9.98-11.88)
--- NOTE | 2016-08-21 09:19 | PN ---
Physical Exam: SUBJECTIVE: Patient seen and examined,more awake and alert today, no BiPAP overnight, on 2L NC. Breathing improved. Denies chest pain, melena, or urinary complaints. EGD/Colonoscopy today. OBJECTIVE: Vital Signs Period Temp Pulse Resp BP Sys/Killian Pulse Ox Last 24 Hr 97.8 F-99.3 F 69-96 18-22 94-157/48-64 88 GENERAL: The patient is awake, alert, and fully oriented, in no acute distress. HEAD: Normal with no signs of trauma. LUNGS: decreased Breath sounds equal, clear to auscultation bilaterally, mild scattered wheezes, no crackles, no accessory muscle use. HEART: Regular rate and rhythm, S1, S2 without murmur, rub or gallop. ABDOMEN: Soft, nontender, nondistended, normoactive bowel sounds, no guarding, no rebound, hepatomegaly EXTREMITIES: 2+ pulses, warm, well-perfused, no edema. NEUROLOGICAL: Cranial nerves II through XII grossly intact. Normal speech, gait not observed. PSYCH: Normal mood, normal affect. SKIN: Warm, dry, normal turgor, no rashes or lesions noted Laboratory Results - last 24 hr 08/18/16 08/18/16 08/20/16 06:00 06:00 11:06 WBC RBC Hgb Hct MCV MCHC RDW Plt Count MPV Neutrophils % Lymphocytes % INR Sodium Potassium Chloride Carbon Dioxide Anion Gap BUN Creatinine Creat Clearance w eGFR POC Glucometer 100 Random Glucose Calcium Total Bilirubin AST ALT Alkaline Phosphatase Total Protein Albumin Tumor Marker AFP 1.0 COLE Screen Negative Hepatitis C Antibody >11.0 H 08/20/16 08/20/16 08/21/16 16:32 21:01 05:59 WBC RBC Hgb Hct MCV MCHC RDW Plt Count MPV Neutrophils % Lymphocytes % INR Sodium Potassium Chloride Carbon Dioxide Anion Gap BUN Creatinine Creat Clearance w eGFR POC Glucometer 146 106 105 Random Glucose Calcium Total Bilirubin AST ALT Alkaline Phosphatase Total Protein Albumin Tumor Marker AFP COLE Screen Hepatitis C Antibody 08/21/16 08/21/16 08/21/16 06:58 06:58 06:58 WBC 7.3 RBC 4.24 Hgb 9.0 L Hct 30.6 L MCV 72.3 L MCHC 29.4 L RDW 35.1 H Plt Count 126 L D MPV 9.4 Neutrophils % Y Lymphocytes % Y INR 1.20 H Sodium 143 Potassium 5.0 Chloride 98 Carbon Dioxide 40 H Anion Gap 5 L BUN 21 H D Creatinine 0.7 Creat Clearance w eGFR > 60 POC Glucometer Random Glucose 80 Calcium 8.6 Total Bilirubin 0.3 AST 21 ALT 23 Alkaline Phosphatase 52 Total Protein 5.4 L Albumin 2.5 L Tumor Marker AFP COLE Screen Hepatitis C Antibody Active Medications Generic Name Dose Route Start Last Admin Trade Name Freq PRN Reason Stop Dose Admin Albuterol Sulfate 1 amp 08/20/16 11:20 08/20/16 11:10 Ventolin 0.083% Nebulizer Soln - NEB 1 amp Q4H PRN Administration SHORT OF BREATH/WHEEZING Albuterol Sulfate 1 amp 08/20/16 14:00 08/21/16 07:03 Ventolin 0.083% Nebulizer Soln - NEB 1 amp TIDR JOB Administration Budesonide/Formoterol Fumarate 2 puff 08/19/16 10:00 08/20/16 21:57 Symbicort 160/4.5mcg - IH 2 inh BID JOB Administration Diazepam 5 mg 08/16/16 10:00 08/20/16 09:11 Valium - PO 5 mg DAILY JOB Administration Ferrous Sulfate 325 mg 08/17/16 12:00 08/20/16 16:52 Feosol - PO 325 mg TIDCM JOB Administration Hydroxyzine Pamoate 50 mg 08/18/16 12:49 Vistaril - PO TID PRN WITHDRAWAL(CONT SUBST) Insulin Aspart 1 vial 08/17/16 16:30 08/21/16 06:56 Novolog Vial Sliding Scale - SQ Not Given ACHS [facility] Protocol Loperamide HCl 4 mg 08/15/16 19:45 Imodium - PO Q6H PRN DIARRHEA Methylprednisolone Sodium Succinate 40 mg 08/19/16 10:00 08/20/16 09:10 Solu-Medrol - IVPB 40 mg DAILY JOB Administration Multivitamins/Minerals/Vitamin C 1 tab 08/19/16 10:00 08/20/16 09:09 Tab-A-Vit - PO 1 tab DAILY JOB Administration Nicotine Polacrilex 2 mg 08/15/16 22:12 08/19/16 09:10 Nicorette Gum - BUC 2 mg Q2H PRN Administration NICOTINE REPLACEMENT RX Pantoprazole Sodium 40 mg 08/16/16 10:00 08/20/16 09:11 Protonix - PO 40 mg DAILY JOB Administration Paroxetine HCl 10 mg 08/16/16 10:00 08/20/16 09:10 Paxil - PO 10 mg DAILY JOB Administration Pseudoephedrine/Triprolidine 1 combo 08/15/16 19:45 Actifed - PO Q4H PRN NASAL CONGESTION Quetiapine Fumarate 100 mg 08/16/16 10:00 08/20/16 09:10 Seroquel - PO 100 mg DAILY JOB Administration Thiamine HCl 100 mg 08/16/16 10:00 08/20/16 09:10 Vitamin B1 - PO 100 mg DAILY JOB Administration Abdominal/Pelvic/Bladder US: Multiple hepatic cysts, as described above with the largest in the right hepatic lobe measuring 5.1 x 3.6 cm. Partially distended gallbladder with borderline thickening of its wall and without intraluminal stones or pericholecystic free fluid. There is a trace of free fluid/ascites in the right upper quadrant and questionable minimal right pleural effusion. Pelvis/urinary bladder ultrasound Urinary bladder is moderately distended with a volume of 245 cc without thickening of its wall. Ureteral jets were not identified. There is approximately 58 cc of postvoid urine residue The uterus measures 6.6 x 3.3 cm without gross evidence of a mass/fibroid. Limited visualization of the endometrial wall without gross thickening. Both ovaries were not visualized. IMPRESSION: Normal size uterus without definite visualization of the endometrial stripe. No gross mass/fibroid is identified. Please correlate with transvaginal ultrasound for further evaluation Moderately distended urinary bladder without wall thickening. Bilateral ureteral jets were not visualized. Approximately 58 cc of postvoid urine residue is present. ASSESSMENT/PLAN: 70 year old female with a PMhx of asthma, anemia, drug abuse, sent over from [facility] due to anemia, hypoxia; found to be in acute respiratory failure and severely anemic. #hypercarbic respiratory failure secondary to asthma exacerbation may have COPD component ; -taper steriods -cont albuterol/symbicort -albuterol neb sched/q4h prn -troponins wnl -CXR wnl #anemia acute on chronic;r/o secondary causes of bleed; r/o malignancy -2 U PRBC on admission; -heme/hct stable; -iron supplement -last colonoscopy 5 years ago; place unknown -abdominal US/Pelvic: details above: multiple hepatic cysts: trace free fluids/ ascities RUQ; questionable right pleural effusion -hep A and B negative; -hep c antibody + -Colonoscopy/endoscopy today #detox: -continue methadone 15mg -taper by 5 mg each day #depression: -cont home meds FEN: Fluids:po Electrolytes:wnl Diet: regular VTE: na Disposition:pending scope Visit type - Emergency Visit Emergency Visit: Yes ED Registration Date: 08/15/16 Care time: The patient presented to the Emergency Department on the above date and was hospitalized for further evaluation of their emergent condition. - New Patient This patient is new to me today: No - Critical Care Critical Care patient: No
[2016-08-21 09:45] LABS: PLATELET ESTIMATE DECREASED (NORMAL)
[2016-08-21] MEDS: FERROUS SO4 325 MG TABLET (FP) PO SCH ×3 (09:58→19:06)
[2016-08-21] MEDS ORDERED: PT OWN MED DRAWER 7, Y5N ONE (10:05)
[2016-08-21] MEDS: BUDESONIDE/FORMETEROL FUMARATE 160/4.5 mcg INHALER IH SCH ×2 (10:09→22:00)
[2016-08-21] MEDS: methylPREDNISolone NA SUCC 40 MG/1 ML VIAL IVPB SCH (10:09)
[2016-08-21] MEDS: diazePAM 5 MG TABLET PO SCH (11:15)
[2016-08-21] MEDS ORDERED: DEXTROSE 50%-WATER 50 ML VIAL IVPUSH ONE (11:45)
[2016-08-21] MEDS: MULTIVITAMINS (DAILY MVI) TABLET (FP) PO SCH (11:49)
[2016-08-21] MEDS: THIAMINE HCL 100 MG TABLET (FP) PO SCH (11:49)
[2016-08-21] MEDS: PANTOPRAZOLE 40 MG TABLET (FP) PO SCH (11:49)
[2016-08-21] MEDS: QUEtiapine FUMARATE 100 MG TABLET (FP) PO SCH (11:49)
[2016-08-21] MEDS: PARoxetine HCL 10 MG TABLET (FP) PO SCH (11:49)
[2016-08-21] MEDS ORDERED: PROPOFOL 20 ML ONE ×5 (12:51)
--- NOTE | 2016-08-21 13:53 | PN ---
Progress Note (short form) - Note Progress Note: EGD/Colonoscopy performed. procedures placed in procedural section of physical chart and to be scanned into [facility] Poor colon prep. needs repeat colonoscopy tomorrow with reprep Problem List - Problems (1) Anemia Code(s): D64.9 - ANEMIA, UNSPECIFIED (2) Hepatomegaly Code(s): R16.0 - HEPATOMEGALY, NOT ELSEWHERE CLASSIFIED
[2016-08-21] MEDS ORDERED: ONDANSETRON 4 MG/2 ML VIAL IVPUSH ONE (14:15)
[2016-08-21] MEDS ORDERED: POLYETHYLENE GLYCOL 3350 255 GM BTL PO ONE (16:00)
--- NOTE | 2016-08-21 16:15 | PN ---
Teaching Attending Note Name of Resident: Bessy Martinez ATTENDING PHYSICIAN STATEMENT I saw and evaluated the patient. I reviewed the resident's note and discussed the case with the resident. I agree with the resident's findings and plan as documented. SUBJECTIVE: Patient has no complaints. OBJECTIVE: Vital Signs Period Temp Pulse Resp BP Sys/Killian Pulse Ox Last 24 Hr 97.5 F-98.9 F 66-103 18-22 111-188/48-80 94-100 HEART: S1S2, RRR LUNGS: Clear ABDOMEN: Soft, non-tender, non-distended, normal BS EXTREMITIES: No edema ASSESSMENT AND PLAN: This is a 70-year-old woman with a history of heroin abuse, asthma, anemia and depression who was sent to the ER from [facility] because of anemia and hypoxia. 1. Iron-deficiency anemia - Transfused 2 units PRBCs - No signs of bleeding - Continue ferrous sulfate - EGD, colonoscopy today 2. Acute hypoxic and hypercapnic respiratory failure - Improved - Taper SoluMedrol - Continue Symbicort, Albuterol nebs 3. Lung nodule - Repeat CT scan in 3 months 4. Continuous heroin dependence - Completed Methadone detox - Not interested in inpatient rehab 5. Type 2 DM - Continue Novolog sliding scale 6. Hypophosphatemia - Resolved 7. Severe protein-calorie malnutrition - Continue Glucerna, multivitamin, thiamine 8. Depression - Continue Seroquel 9. Nicotine dependence - Continue nicotine patch
[2016-08-21] MEDS ORDERED: ONDANSETRON 4 MG/2 ML VIAL IVPUSH PRN (18:15)
[2016-08-22 00:06] LABS: A/G RATIO 1.2 (0.7-1.7); ALBUMIN 3.1 g/dL (2.9-4.4); GLOBULIN, TOTAL 2.5 g/dL (2.2-3.9); M-SPIKE Not Observed g/dL (Not Observed); TOTAL PROTEIN 5.6 g/dL (6.0-8.5)
[2016-08-22] MEDS: DEXTROSE 5%-0.45% SALINE 1,000 ML IV SCH (00:39)
[2016-08-22] MEDS: ALBUTEROL SO4 0.083% IH SOL 2.5 MG/3 ML VIAL.NEB. NEB SCH ×3 (07:31→22:01)
[2016-08-22] MEDS ORDERED: PROPOFOL 20 ML ONE ×3 (10:46)
--- NOTE | 2016-08-22 11:38 | PN ---
Progress Note (short form) - Note Progress Note: GI Procedure NOte: Please see scanned colonoscopy report. A small sigmoid polyps was removed. cecal and midtransverse colon angiodysplasia were seen but were not bleeding. Upon further questioning Cheyenne now informs me that she has had vaginal bleeding and has not seen a manufacturing engineering professor anytime recently. Advise Gynecology consultation.
[2016-08-22] MEDS ORDERED: QUEtiapine FUMARATE 50 MG TABLET ONE (12:34)
[2016-08-22] MEDS ORDERED: PT OWN MED DRAWER 7, Y5N ONE ×2 (12:35→12:45)
[2016-08-22] MEDS: MULTIVITAMINS (DAILY MVI) TABLET (FP) PO SCH (12:36)
[2016-08-22] MEDS: INSULIN SLIDING SCALE (NOVOLOG) 1 VIAL SQ SCH ×3 (12:36→22:33)
[2016-08-22] MEDS: THIAMINE HCL 100 MG TABLET (FP) PO SCH (12:37)
[2016-08-22] MEDS: predniSONE 20 MG TABLET (UD) PO SCH (12:37)
[2016-08-22] MEDS: diazePAM 5 MG TABLET PO SCH (12:37)
[2016-08-22] MEDS: FERROUS SO4 325 MG TABLET (FP) PO SCH ×3 (12:37→16:52)
[2016-08-22] MEDS: PANTOPRAZOLE 40 MG TABLET (FP) PO SCH (12:37)
[2016-08-22] MEDS: BUDESONIDE/FORMETEROL FUMARATE 160/4.5 mcg INHALER IH SCH ×2 (12:38→22:28)
[2016-08-22] MEDS: PARoxetine HCL 10 MG TABLET (FP) PO SCH (12:38)
[2016-08-22] MEDS: QUEtiapine FUMARATE 100 MG TABLET (FP) PO SCH (12:38)
[2016-08-22 13:07] LABS: MCH 21.1 pg (25.7-33.7); MCHC 29.5 g/dl (32.0-36.0); MEAN CELL VOLUME 71.7 fl (80-96); MEAN PLT VOLUME 9.1 fl (7.5-11.1); PLATELET COUNT 174 K/MM3 (134-434); RDW 34.3 % (11.6-15.6)
[2016-08-22 13:42] LABS: ALBUMIN 2.9 g/dl (3.4-5.0); ALK PHOS 59 U/L (45-117); ANION GAP 8 (8-16); BILIRUBIN,TOTAL 0.7 mg/dL (0.2-1.0); CALCIUM 8.8 mg/dL (8.5-10.1); CO2 37 mmol/L (21-32); CREATININE 0.7 mg/dL (0.55-1.02); GLUCOSE,RANDOM 78 mg/dL (74-106); SGOT/AST 22 U/L (15-37); SGPT/ALT 25 U/L (12-78); TOT PROT 5.9 g/dl (6.4-8.2)
[2016-08-22 16:43] LABS: ARTERIAL BLD GAS O2 SATURATION 96.9 % (90-98.9); ARTERIAL BLOOD GAS BASE EXCESS 12.3 meq/l (-2-2); ARTERIAL BLOOD GAS HCO3 37.6 meq/L (22-26); ARTERIAL BLOOD GAS PO2 79.3 mmHg (80-100); ARTERIAL BLOOD GAS pH 7.45 (7.35-7.45)
[2016-08-22 16:45] LABS: ALLENS TEST POSITIVE; ART PUNCT SITE RIGHT RADIAL
[2016-08-22 16:46] LABS: LPM/O2% 40%; PT. ON O2? YES; TYPE OF O2 BI-PAP; VENT RATE 14
--- NOTE | 2016-08-22 17:44 | PN ---
Teaching Attending Note Name of Resident: Bessy Martinez ATTENDING PHYSICIAN STATEMENT I saw and evaluated the patient. I reviewed the resident's note and discussed the case with the resident. I agree with the resident's findings and plan as documented. SUBJECTIVE: No complaints. OBJECTIVE: Vital Signs Period Temp Pulse Resp BP Sys/Killian Pulse Ox Last 24 Hr 97.8 F-99.4 F 64-87 18-22 111-163/47-84 91-100 HEART: S1S2, RRR LUNGS: Clear ABDOMEN: Soft, non-tender, non-distended, normal BS EXTREMITIES: No edema ASSESSMENT AND PLAN: This is a 70-year-old woman with a history of heroin abuse, asthma, anemia and depression who was sent to the ER from [facility] because of anemia and hypoxia. 1. Iron-deficiency anemia - Transfused 2 units PRBCs - No signs of bleeding - Hgb stable - Continue ferrous sulfate - EGD, colonoscopy today 2. Acute hypoxic and hypercapnic respiratory failure - Improved - SoluMedrol changed to Prednisone - Continue Symbicort, Albuterol nebs - Pulmonary consult 3. Lung nodule - Pulmonary consult 4. Continuous heroin dependence - Completed Methadone detox - Not interested in rehab 5. Type 2 DM - Continue Novolog sliding scale 6. Hypophosphatemia - Resolved 7. Severe protein-calorie malnutrition - Continue Glucerna, multivitamin, thiamine 8. Depression - Continue Seroquel 9. Nicotine dependence - Continue nicotine patch
[2016-08-22 19:52] LABS: ANISOCYTOSIS 3+; HYPOCHROMIA 2+; PLATELET ESTIMATE ADEQUATE (NORMAL)
[2016-08-22 19:53] LABS: TARGET CELLS 1+
--- NOTE | 2016-08-22 21:50 | PN ---
Physical Exam: SUBJECTIVE: Patient seen and examined, going for colonoscopy today. keeps taking BiPap off or NC. Desats quickly off oxygen. lethargic with nausea. OBJECTIVE: Vital Signs Period Temp Pulse Resp BP Sys/Killian Pulse Ox Last 24 Hr 97.8 F-99.4 F 69-87 18-22 111-163/47-84 91-100 GENERAL: The patient is awake but lethargic, alert, and fully oriented, in no acute distress. HEAD: Normal with no signs of trauma. LUNGS: Breath sounds decreased; poor inspiratory/expiratory efforts, clear to auscultation bilaterally, no wheezes, no crackles, no accessory muscle use. HEART: Regular rate and rhythm, S1, S2 without murmur, rub or gallop. ABDOMEN: Soft, nontender, nondistended, normoactive bowel sounds, no guarding, no rebound, hepatomegaly EXTREMITIES: 2+ pulses, warm, well-perfused, no edema. NEUROLOGICAL: Cranial nerves II through XII grossly intact. Normal speech, gait not observed. PSYCH: depressed mood, normal affect. SKIN: Warm, dry, normal turgor, no rashes or lesions noted Laboratory Results - last 24 hr 08/18/16 08/22/16 08/22/16 06:00 05:51 12:31 WBC RBC Hgb Hct MCV MCHC RDW Plt Count MPV Neutrophils % Lymphocytes % Monocytes % Band Neutrophils Platelet Estimate Hypochromic-Microcytic Anisocytosis Target Cells Puncture Site ABG pH ABG pCO2 at Pt Temp ABG pO2 at Pt Temp ABG HCO3 ABG O2 Sat (Measured) ABG O2 Content ABG Base Excess Tim Test O2 Delivery Device Oxygen Flow Rate Vent Mode Vent Rate PEEP Pressure Support Vent Sodium Potassium Chloride Carbon Dioxide Anion Gap BUN Creatinine Creat Clearance w eGFR POC Glucometer 114 67 Random Glucose Calcium Total Bilirubin AST ALT Alkaline Phosphatase Prot Electrophoresis Serum Total Protein 5.6 L Total Protein Albumin 3.1 Globulin 2.5 Albumin/Globulin Ratio 1.2 Nfvwg-2-Mbvcvgmho 0.2 Yjgcp-3-Wjgdvwdyl 0.4 Beta Globulins 0.7 Gamma Globulins 1.2 THOMPSON M-Adolph Not observed 08/22/16 08/22/16 08/22/16 12:35 12:35 16:30 WBC 7.0 RBC 4.26 Hgb 9.0 L Hct 30.5 L MCV 71.7 L MCHC 29.5 L RDW 34.3 H Plt Count 174 D MPV 9.1 Neutrophils % 81.0 Lymphocytes % 11.0 Monocytes % 6.0 Band Neutrophils 2.0 Platelet Estimate Adequate Hypochromic-Microcytic 2+ Anisocytosis 3+ Target Cells 1+ Puncture Site Right radial ABG pH 7.45 D ABG pCO2 at Pt Temp 55.0 H D ABG pO2 at Pt Temp 79.3 L D ABG HCO3 37.6 H ABG O2 Sat (Measured) 96.9 ABG O2 Content 11.6 L ABG Base Excess 12.3 H Tim Test Positive O2 Delivery Device Bi-pap Oxygen Flow Rate 40% Vent Mode S/t Vent Rate 14 PEEP 0.0 Pressure Support Vent 10/5 Sodium 138 Potassium 4.1 Chloride 93 L Carbon Dioxide 37 H Anion Gap 8 BUN 12 D Creatinine 0.7 Creat Clearance w eGFR > 60 POC Glucometer Random Glucose 78 Calcium 8.8 Total Bilirubin 0.7 D AST 22 ALT 25 Alkaline Phosphatase 59 Prot Electrophoresis Serum Total Protein Total Protein 5.9 L Albumin 2.9 L Globulin Albumin/Globulin Ratio Qanum-9-Ggnytemjc Lhfxf-1-Gofkbgfqp Beta Globulins Gamma Globulins THOMPSON M-Adolph 08/22/16 16:50 WBC RBC Hgb Hct MCV MCHC RDW Plt Count MPV Neutrophils % Lymphocytes % Monocytes % Band Neutrophils Platelet Estimate Hypochromic-Microcytic Anisocytosis Target Cells Puncture Site ABG pH ABG pCO2 at Pt Temp ABG pO2 at Pt Temp ABG HCO3 ABG O2 Sat (Measured) ABG O2 Content ABG Base Excess Tim Test O2 Delivery Device Oxygen Flow Rate Vent Mode Vent Rate PEEP Pressure Support Vent Sodium Potassium Chloride Carbon Dioxide Anion Gap BUN Creatinine Creat Clearance w eGFR POC Glucometer 104 Random Glucose Calcium Total Bilirubin AST ALT Alkaline Phosphatase Prot Electrophoresis Serum Total Protein Total Protein Albumin Globulin Albumin/Globulin Ratio Dmptd-9-Xvqijqwed Atvri-5-Lsautdqaz Beta Globulins Gamma Globulins THOMPSON M-Adolph Active Medications Generic Name Dose Route Start Last Admin Trade Name Freq PRN Reason Stop Dose Admin Albuterol Sulfate 1 amp 08/20/16 11:20 08/20/16 11:10 Ventolin 0.083% Nebulizer Soln - NEB 1 amp Q4H PRN Administration SHORT OF BREATH/WHEEZING Albuterol Sulfate 1 amp 08/20/16 14:00 08/22/16 13:16 Ventolin 0.083% Nebulizer Soln - NEB Not Given TIDR JOB Ascorbic Acid 500 mg 08/22/16 22:00 Vitamin C - PO BID JOB Budesonide/Formoterol Fumarate 2 puff 08/19/16 10:00 08/22/16 12:38 Symbicort 160/4.5mcg - IH 2 inh BID JOB Administration Ferrous Sulfate 325 mg 08/17/16 12:00 08/22/16 16:52 Feosol - PO 325 mg TIDCM JOB Administration Hydroxyzine Pamoate 50 mg 08/18/16 12:49 Vistaril - PO TID PRN WITHDRAWAL(CONT SUBST) Dextrose/Sodium Chloride 1,000 mls @ 100 mls/hr 08/22/16 00:01 08/22/16 00:39 D5-1/2ns - IV 100 mls/hr ASDIR JOB Administration Insulin Aspart 1 vial 08/17/16 16:30 08/22/16 16:51 Novolog Vial Sliding Scale - SQ Not Given ACHS [facility] Protocol Multivitamins/Minerals/Vitamin C 1 tab 08/19/16 10:00 08/22/16 12:36 Tab-A-Vit - PO 1 tab DAILY JOB Administration Nicotine Polacrilex 2 mg 08/15/16 22:12 08/19/16 09:10 Nicorette Gum - BUC 2 mg Q2H PRN Administration NICOTINE REPLACEMENT RX Pantoprazole Sodium 40 mg 08/16/16 10:00 08/22/16 12:37 Protonix - PO 40 mg DAILY JOB Administration Paroxetine HCl 10 mg 08/16/16 10:00 08/22/16 12:38 Paxil - PO 10 mg DAILY JOB Administration Prednisone 40 mg 08/22/16 10:00 08/22/16 12:37 Deltasone - PO 40 mg DAILY JOB Administration Pseudoephedrine/Triprolidine 1 combo 08/15/16 19:45 Actifed - PO Q4H PRN NASAL CONGESTION Thiamine HCl 100 mg 08/16/16 10:00 08/22/16 12:37 Vitamin B1 - PO 100 mg DAILY JOB Administration ASSESSMENT/PLAN: Abdominal/Pelvic/Bladder US: Multiple hepatic cysts, as described above with the largest in the right hepatic lobe measuring 5.1 x 3.6 cm. Partially distended gallbladder with borderline thickening of its wall and without intraluminal stones or pericholecystic free fluid. There is a trace of free fluid/ascites in the right upper quadrant and questionable minimal right pleural effusion. Pelvis/urinary bladder ultrasound Urinary bladder is moderately distended with a volume of 245 cc without thickening of its wall. Ureteral jets were not identified. There is approximately 58 cc of postvoid urine residue The uterus measures 6.6 x 3.3 cm without gross evidence of a mass/fibroid. Limited visualization of the endometrial wall without gross thickening. Both ovaries were not visualized. IMPRESSION: Normal size uterus without definite visualization of the endometrial stripe. No gross mass/fibroid is identified. Please correlate with transvaginal ultrasound for further evaluation Moderately distended urinary bladder without wall thickening. Bilateral ureteral jets were not visualized. Approximately 58 cc of postvoid urine residue is present. Chest CT non contrast IMPRESSION: A solitary nonspecific 1.2 x 1 x 1 cm left upper lobe pulmonary nodule is noted which could be on the basis of primary neoplastic disease. Additional evaluation utilizing PET/CT may be performed. Centrilobular emphysema. Dilated central pulmonary arterial vasculature consistent with evidence of pulmonary hypertension. Possible minimal to mild cardiomegaly. Small bilateral pleural effusions. Small amount of perihepatic ascites. A dedicated abdomen/pelvic CT study may be performed. Hepatic cysts. Moderate T6 and mild T5 vertebral body compression fractures which appear chronic. ASSESSMENT/PLAN: 70 year old female with a PMhx of asthma, anemia, drug abuse, sent over from [facility] due to anemia, hypoxia; found to be in acute respiratory failure and severely anemic. #hypercarbic respiratory failure secondary to COPD exacerbation ; -when off oxygen patient desaturates quickly; -steroids iv to po now 40mg qd -symbicort 2puffs bid -albuterol neb sched/q4h prn -CXR wnl -chest CT; indicating centrilobular emphysema; dilated pulmonary arterial vasc; pulm htn; and a PENNY nodule -pulmonary consult #lung nodule on chest CT: -lung ca evaluation #anemia acute on chronic;most likely from AVM found on EGD -2 U PRBC on admission; -heme/hct stable; -iron supplement -abdominal US/Pelvic: details above: multiple hepatic cysts: trace free fluids/ ascities RUQ; questionable right pleural effusion -EGD: multiple vessel ectasias in the stomach and duodenum; 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 - New Patient This patient is new to me today: No - Critical Care Critical Care patient: No
[2016-08-22] MEDS: ASCORBIC ACID 500 MG TABLET (FP) PO SCH (22:28)
[2016-08-23] MEDS: INSULIN SLIDING SCALE (NOVOLOG) 1 VIAL SQ SCH ×4 (06:16→21:39)
[2016-08-23] MEDS: DEXTROSE 5%-0.45% SALINE 1,000 ML IV SCH ×3 (06:17→22:45)
[2016-08-23] MEDS: ALBUTEROL SO4 0.083% IH SOL 2.5 MG/3 ML VIAL.NEB. NEB SCH ×3 (06:30→22:10)
[2016-08-23 07:48] LABS: ALBUMIN 2.6 g/dl (3.4-5.0); ANION GAP 7 (8-16); CALCIUM 8.6 mg/dL (8.5-10.1); CO2 36 mmol/L (21-32); CREATININE 0.7 mg/dL (0.55-1.02); GLUCOSE,RANDOM 91 mg/dL (74-106); SGOT/AST 19 U/L (15-37); SGPT/ALT 23 U/L (12-78)
[2016-08-23 07:49] LABS: ALK PHOS 56 U/L (45-117); BILIRUBIN,TOTAL 0.6 mg/dL (0.2-1.0); TOT PROT 5.7 g/dl (6.4-8.2)
[2016-08-23 08:44] LABS: MCH 21.3 pg (25.7-33.7); MCHC 29.6 g/dl (32.0-36.0); MEAN CELL VOLUME 72.1 fl (80-96); MEAN PLT VOLUME 9.6 fl (7.5-11.1); PLATELET COUNT 181 K/MM3 (134-434); WHITE BLOOD COUNT 3.9 K/mm3 (4.0-10.0)
[2016-08-23] MEDS: FERROUS SO4 325 MG TABLET (FP) PO SCH ×3 (09:21→17:25)
[2016-08-23] MEDS: predniSONE 20 MG TABLET (UD) PO SCH (10:15)
[2016-08-23] MEDS: THIAMINE HCL 100 MG TABLET (FP) PO SCH (10:15)
[2016-08-23] MEDS: MULTIVITAMINS (DAILY MVI) TABLET (FP) PO SCH (10:15)
[2016-08-23] MEDS: ASCORBIC ACID 500 MG TABLET (FP) PO SCH ×2 (10:15→21:34)
[2016-08-23] MEDS: PANTOPRAZOLE 40 MG TABLET (FP) PO SCH (10:15)
[2016-08-23] MEDS: PARoxetine HCL 10 MG TABLET (FP) PO SCH (10:16)
[2016-08-23] MEDS: BUDESONIDE/FORMETEROL FUMARATE 160/4.5 mcg INHALER IH SCH ×2 (10:27→21:35)
[2016-08-23] MEDS: hydrOXYzine PAMOATE 50 MG CAPSULE (FP) PO PRN ×2 (10:29→22:51)
[2016-08-23] MEDS: NICOTINE POLACRILEX 2 MG GUM BUC PRN (11:21)
--- NOTE | 2016-08-23 12:04 | CON.PULM ---
Consult Consult Specialty:: PULMONARY Referred by:: Dr. Munguia Reason for Consultation:: shortness of breath, lung nodule - History of Present Illness Chief Complaint: shortness of breath, altered mental status History of Present Illness: 70yo female with h/o asthma/COPD, heroin abuse who was initially admitted for altered mental status and shortness of breath. Found to be anemic with Hgb 5.9 s /p EGD and colonoscopy showing gastric and duodenal AVMs s/p cautery. During admission required BiPAP with ABG showing acute on chronic respiratory acidosis. CT chest done showing a 1cm PENNY nodule. She is a long time smoker, started at age 18, smoked on average 1 PPD, still smoking. She does report some dyspnea on exertion but no chronic cough or wheezing. No chest tightness. No leg swelling or orthopnea. - History Source History Provided By: Patient, Medical Record Limitations to Obtaining History: No Limitations - Past Medical History Pulmonary: Yes: COPD ...: No Psych: Yes: Addictions (Heroin abuse, ? history of alcohol abuse) - Past Surgical History Past Surgical History: Yes: - Alcohol/Substance Use Hx Alcohol Use: No - Smoking History Smoking history: Current every day smoker Have you smoked in the past 12 months: Yes Aproximately how many cigarettes per day: 7 Home Medications - Allergies Allergies/Adverse Reactions: Allergies Allergy/AdvReac Type Severity Reaction Status Date / Time ibuprofen Allergy Mild Nausea Verified 08/15/16 12:53 - Home Medications Home Medications: Ambulatory Orders Albuterol Sulfate Inhaler - [Ventolin Hfa Inhaler -] 1 - 2 inh PO QID 08/15/16 Albuterol Sulfate [Ventolin -] 2 mg PO TID 08/15/16 Ascorbic Acid [Vitamin C] 500 mg PO BID 08/15/16 Budesonide/Formeterol Fumarate [SYMBICORT 80/4.5mcg -] 1 inh PO BID 08/15/16 Diazepam [Valium] 5 mg PO DAILY 08/15/16 Diphenhydramine [Benadryl -] 50 mg PO DAILY 08/15/16 Ferrous Sulfate [Feosol] 325 mg PO DAILY 08/15/16 Hydroxyzine Pamoate [Vistaril -] 50 mg PO TID 08/15/16 Loperamide HCl [Imodium -] 4 mg PO ASDIR 08/15/16 Magnesium Hydrox 2400MG/30Ml [Milk of Magnesia -] 30 ml PO ONCE 08/15/16 Methadone (Detox) [Dolophine -] 15 mg PO DAILY 08/15/16 P-Ephed 60Mg/Triprolidi 2.5MG [Actifed -] 1 combo PO Q4H 08/15/16 Paroxetine HCl [Paxil -] 10 mg PO DAILY 08/15/16 Vit/Iron Fumarate/FA [ Tablet] 1 each PO DAILY 08/15/16 Quetiapine Fumarate [Seroquel] 100 tab PO DAILY 08/15/16 Thiamine HCl [Vitamin B1] 100 mg PO DAILY 08/15/16 Family Disease History - Family Disease History Family Disease History: Heart Disease: Brother, Other: Brother, Sister ( (Unknown reason).) Review of Systems - Review of Systems Constitutional: denies: Chills, Fever Eyes: denies: Recent Change in Vision HENT: denies: Nasal Congestion, Throat Pain Neck: denies: Stiffness, Tenderness Cardiovascular: reports: Shortness of Breath. denies: Chest Pain, Edema, Palpitations Respiratory: reports: SOB on Exertion. denies: Cough, Hemoptysis, Wheezing Gastrointestinal: denies: Abdominal Pain, Nausea, Vomiting Genitourinary: denies: Dysuria, Hematuria Neurological: denies: Dizziness, Headache Physical Exam Vital Sings: Vital Signs Temperature 99.1 F 08/23/16 06:00 Pulse Rate 78 08/23/16 06:00 Respiratory Rate 18 08/23/16 06:00 Blood Pressure 140/49 08/23/16 06:00 O2 Sat by Pulse Oximetry (%) 93 L 08/22/16 22:00 Constitutional: Yes: Calm Eyes: Yes: Conjunctiva Clear, EOM Intact HENT: Yes: Atraumatic, Normocephalic Neck: Yes: Supple, Trachea Midline Cardiovascular: Yes: Regular Rate and Rhythm Respiratory: Yes: Diminished (distant breath sounds) ...Clubbing: No Gastrointestinal: Yes: Normal Bowel Sounds, Soft. No: Tenderness Edema: No Peripheral Pulses WNL: Yes Neurological: Yes: Alert, Oriented Labs: CBC, BMP 08/23/16 06:10 08/23/16 06:10 ABG Results ABG pH 7.45 (7.35-7.45) D 08/22/16 16:30 ABG pCO2 at Pt Temp 55.0 mmHg (35-45) H D 08/22/16 16:30 ABG pO2 at Pt Temp 79.3 mmHg (80-100) L D 08/22/16 16:30 ABG HCO3 37.6 meq/L (22-26) H 08/22/16 16:30 ABG O2 Sat (Measured) 96.9 % (90-98.9) 08/22/16 16:30 ABG O2 Content 11.6 % vol (15-22) L 08/22/16 16:30 ABG Base Excess 12.3 meq/l (-2-2) H 08/22/16 16:30 Imaging - Results Cat Scan: Report Reviewed, Image Reviewed (emphysemaous changes, PENNY nodule) Problem List - Problems (1) Acute on chronic respiratory failure with hypoxia and hypercapnia Code(s): J96.21 - ACUTE AND CHRONIC RESPIRATORY FAILURE WITH HYPOXIA J96.22 - ACUTE AND CHRONIC RESPIRATORY FAILURE WITH HYPERCAPNIA (2) COPD (chronic obstructive pulmonary disease) Code(s): J44.9 - CHRONIC OBSTRUCTIVE PULMONARY DISEASE, UNSPECIFIED (3) Heroin abuse Code(s): F11.10 - OPIOID ABUSE, UNCOMPLICATED (4) Smoker Code(s): F17.200 - NICOTINE DEPENDENCE, UNSPECIFIED, UNCOMPLICATED (5) Lung nodule Code(s): R91.1 - SOLITARY PULMONARY NODULE Assessment/Plan Acute on Chronic Hypoxic and Hypercapneic Respiratory Failure improving Acute COPD Exacerbation Emphysema Lung Nodule suspicious for malignancy Smoker Heroin Abuse Anemia GI Bleed - continue current prednisone taper - continue symbicort as inpatient, can discharge home on Advair 500/50mcg 1 puff BID and Spiriva 1 puff daily - Albuterol PRN - smoking cessation - advised pt to follow up for her lung nodule as it is suspicious, left her my card, she will need a PET scan and CT guided needle biopsy as outpt - will need home O2 - DVT prophylaxis
--- NOTE | 2016-08-23 13:57 | PATH ---
Surgical Pathology Report Patient Name: DOMINGO ORNELAS [facility]. Rec. #: [id number] /Age/Gender: 1945 (Age: 70) / F Account: [id number] Location: [address] [place] [address]/[facility] Taken: 08/21/2016 Received: 08/22/2016 Reported: 08/23/2016 Physicians: Nolan Rivas D.O. Specimen(s) Received A: BX SCAR IN ANTRUM B: BX AMPULARIS & BODY Clinical History Anemia Gastric and duodenal AVMs, scar in antrum, gastritis, poor colon prep Final Diagnosis A. STOMACH, ANTRUM, SCAR, BIOPSY: GASTRIC ANTRAL MUCOSA WITH MODERATE CHRONIC GASTRITIS WITH MILD LAMINA PROPRIA FIBROSIS AND MARKED REACTIVE GASTROPATHY. IMMUNOSTAIN FOR H. PYLORI IS NEGATIVE FOR ORGANISMS. B. STOMACH, ANGULARIS AND BODY, BIOPSY: GASTRIC OXYNTIC MUCOSA WITH MODERATE CHRONIC GASTRITIS. IMMUNOSTAIN FOR H. PYLORI IS NEGATIVE FOR ORGANISMS. Electronically Signed Adryan Santos M.D. Gross Description A. Received in formalin, labeled "biopsy scar in antrum" are 3 romero, irregular portions of soft tissue ranging from 0.1-0.2 cm in greatest dimension. The specimens are submitted in toto in one cassette. B. Received in formalin, labeled "biopsy angularis and body" is a romero, irregular portion of soft tissue measuring 0.3 cm in greatest dimension. The specimen is submitted in toto in one cassette. /08/22/2016 saudi08/22/2016
--- NOTE | 2016-08-23 14:17 | PATH ---
Surgical Pathology Report Patient Name: DOMINGO ORNELAS Med. Rec. #: [id number] /Age/Gender: 1945 (Age: 70) / F Account: [id number] Location: [address] [place] [address]/[facility] Taken: 08/22/2016 Received: 08/22/2016 Reported: 08/23/2016 Physicians: Antonia Fair M.D. Specimen(s) Received BX SIGMOID Clinical History Anemia AVMs, polyp Final Diagnosis COLON, SIGMOID, POLYP, BIOPSY: FRAGMENTS OF HYPERPLASTIC POLYP. Electronically Signed Adryan Santos M.D. Gross Description Received in formalin, labeled "biopsy sigmoid polyp" are 2 romero, irregular portions of soft tissue measuring 0.1 and 0.3 cm in greatest dimension. The specimens are submitted in toto in one cassette. 08/22/201608/22/2016
--- NOTE | 2016-08-23 16:06 | PN ---
Physical Exam: SUBJECTIVE: Patient seen and examined, denies chest pain sob; on 3L o2. NO melena. H/H/ stable. OBJECTIVE: Vital Signs Period Temp Pulse Resp BP Sys/Killian Pulse Ox Last 24 Hr 98.1 F-99.1 F 69-84 18-22 106-140/49-62 90-94 GENERAL: The patient is awake, alert, and fully oriented, in no acute distress. HEAD: Normal with no signs of trauma. EYES: PERRL, extraocular movements intact, sclera anicteric, conjunctiva clear. No ptosis. ENT: Ears normal, nares patent, oropharynx clear without exudates, moist mucous membranes. NECK: Trachea midline, full range of motion, supple. LUNGS: decreased Breath sounds equal, clear to auscultation bilaterally, mild wheezes, no crackles, no accessory muscle use. HEART: Regular rate and rhythm, S1, S2 without murmur, rub or gallop. ABDOMEN: Soft, nontender, nondistended, normoactive bowel sounds, no guarding, no rebound, no hepatosplenomegaly, no masses. EXTREMITIES: 2+ pulses, warm, well-perfused, no edema. NEUROLOGICAL: Cranial nerves II through XII grossly intact. Normal speech, gait not observed. PSYCH: Normal mood, normal affect. SKIN: Warm, dry, normal turgor, no rashes or lesions noted Laboratory Results - last 24 hr 08/22/16 08/22/16 08/22/16 12:35 16:30 16:50 WBC RBC Hgb Hct MCV MCHC RDW Plt Count MPV Neutrophils % 81.0 Lymphocytes % 11.0 Monocytes % 6.0 Band Neutrophils 2.0 Platelet Estimate Adequate Hypochromic-Microcytic 2+ Anisocytosis 3+ Target Cells 1+ Puncture Site Right radial ABG pH 7.45 D ABG pCO2 at Pt Temp 55.0 H D ABG pO2 at Pt Temp 79.3 L D ABG HCO3 37.6 H ABG O2 Sat (Measured) 96.9 ABG O2 Content 11.6 L ABG Base Excess 12.3 H Tim Test Positive O2 Delivery Device Bi-pap Oxygen Flow Rate 40% Vent Mode S/t Vent Rate 14 PEEP 0.0 Pressure Support Vent 10/5 Sodium Potassium Chloride Carbon Dioxide Anion Gap BUN Creatinine Creat Clearance w eGFR POC Glucometer 104 Random Glucose Calcium Total Bilirubin AST ALT Alkaline Phosphatase Total Protein Albumin 08/22/16 08/23/16 08/23/16 22:30 06:10 06:10 WBC 3.9 L D RBC 4.26 Hgb 9.1 L Hct 30.7 L MCV 72.1 L MCHC 29.6 L RDW 34.0 H Plt Count 181 MPV 9.6 Neutrophils % Lymphocytes % Monocytes % Band Neutrophils Platelet Estimate Hypochromic-Microcytic Anisocytosis Target Cells Puncture Site ABG pH ABG pCO2 at Pt Temp ABG pO2 at Pt Temp ABG HCO3 ABG O2 Sat (Measured) ABG O2 Content ABG Base Excess Tim Test O2 Delivery Device Oxygen Flow Rate Vent Mode Vent Rate PEEP Pressure Support Vent Sodium 141 Potassium 4.6 Chloride 98 Carbon Dioxide 36 H Anion Gap 7 L BUN 14 Creatinine 0.7 Creat Clearance w eGFR > 60 POC Glucometer 145 Random Glucose 91 Calcium 8.6 Total Bilirubin 0.6 AST 19 ALT 23 Alkaline Phosphatase 56 Total Protein 5.7 L Albumin 2.6 L 08/23/16 08/23/16 06:14 11:54 WBC RBC Hgb Hct MCV MCHC RDW Plt Count MPV Neutrophils % Lymphocytes % Monocytes % Band Neutrophils Platelet Estimate Hypochromic-Microcytic Anisocytosis Target Cells Puncture Site ABG pH ABG pCO2 at Pt Temp ABG pO2 at Pt Temp ABG HCO3 ABG O2 Sat (Measured) ABG O2 Content ABG Base Excess Tim Test O2 Delivery Device Oxygen Flow Rate Vent Mode Vent Rate PEEP Pressure Support Vent Sodium Potassium Chloride Carbon Dioxide Anion Gap BUN Creatinine Creat Clearance w eGFR POC Glucometer 108 122 Random Glucose Calcium Total Bilirubin AST ALT Alkaline Phosphatase Total Protein Albumin Active Medications Generic Name Dose Route Start Last Admin Trade Name Freq PRN Reason Stop Dose Admin Albuterol Sulfate 1 amp 08/20/16 11:20 08/20/16 11:10 Ventolin 0.083% Nebulizer Soln - NEB 1 amp Q4H PRN Administration SHORT OF BREATH/WHEEZING Albuterol Sulfate 1 amp 08/20/16 14:00 08/23/16 14:36 Ventolin 0.083% Nebulizer Soln - NEB 1 amp TIDR JOB Administration Ascorbic Acid 500 mg 08/22/16 22:00 08/23/16 10:15 Vitamin C - PO 500 mg BID JOB Administration Budesonide/Formoterol Fumarate 2 puff 08/19/16 10:00 08/23/16 10:27 Symbicort 160/4.5mcg - IH Not Given BID JOB Ferrous Sulfate 325 mg 08/17/16 12:00 08/23/16 12:52 Feosol - PO 325 mg TIDCM JOB Administration Hydroxyzine Pamoate 50 mg 08/18/16 12:49 08/23/16 10:29 Vistaril - PO 50 mg TID PRN Administration WITHDRAWAL(CONT SUBST) Dextrose/Sodium Chloride 1,000 mls @ 100 mls/hr 08/22/16 00:01 08/23/16 11:31 D5-1/2ns - IV 100 mls/hr ASDIR JOB Administration Insulin Aspart 1 vial 08/17/16 16:30 08/23/16 12:38 Novolog Vial Sliding Scale - SQ Not Given ACHS [facility] Protocol Multivitamins/Minerals/Vitamin C 1 tab 08/19/16 10:00 08/23/16 10:15 Tab-A-Vit - PO 1 tab DAILY JOB Administration Nicotine Polacrilex 2 mg 08/15/16 22:12 08/23/16 11:21 Nicorette Gum - BUC 2 mg Q2H PRN Administration NICOTINE REPLACEMENT RX Pantoprazole Sodium 40 mg 08/16/16 10:00 08/23/16 10:15 Protonix - PO 40 mg DAILY JOB Administration Paroxetine HCl 10 mg 08/16/16 10:00 08/23/16 10:16 Paxil - PO 10 mg DAILY JOB Administration Prednisone 40 mg 08/22/16 10:00 08/23/16 10:15 Deltasone - PO 40 mg DAILY JOB Administration Pseudoephedrine/Triprolidine 1 combo 08/15/16 19:45 Actifed - PO Q4H PRN NASAL CONGESTION Thiamine HCl 100 mg 08/16/16 10:00 08/23/16 10:15 Vitamin B1 - PO 100 mg DAILY JOB Administration Abdominal/Pelvic/Bladder US: Multiple hepatic cysts, as described above with the largest in the right hepatic lobe measuring 5.1 x 3.6 cm. Partially distended gallbladder with borderline thickening of its wall and without intraluminal stones or pericholecystic free fluid. There is a trace of free fluid/ascites in the right upper quadrant and questionable minimal right pleural effusion. Pelvis/urinary bladder ultrasound Urinary bladder is moderately distended with a volume of 245 cc without thickening of its wall. Ureteral jets were not identified. There is approximately 58 cc of postvoid urine residue The uterus measures 6.6 x 3.3 cm without gross evidence of a mass/fibroid. Limited visualization of the endometrial wall without gross thickening. Both ovaries were not visualized. IMPRESSION: Normal size uterus without definite visualization of the endometrial stripe. No gross mass/fibroid is identified. Please correlate with transvaginal ultrasound for further evaluation Moderately distended urinary bladder without wall thickening. Bilateral ureteral jets were not visualized. Approximately 58 cc of postvoid urine residue is present. Chest CT non contrast IMPRESSION: A solitary nonspecific 1.2 x 1 x 1 cm left upper lobe pulmonary nodule is noted which could be on the basis of primary neoplastic disease. Additional evaluation utilizing PET/CT may be performed. Centrilobular emphysema. Dilated central pulmonary arterial vasculature consistent with evidence of pulmonary hypertension. Possible minimal to mild cardiomegaly. Small bilateral pleural effusions. Small amount of perihepatic ascites. A dedicated abdomen/pelvic CT study may be performed. Hepatic cysts. Moderate T6 and mild T5 vertebral body compression fractures which appear chronic. ASSESSMENT/PLAN: 70 year old female with a PMhx of asthma, anemia, drug abuse, sent over from [facility] due to anemia, hypoxia; found to be in acute respiratory failure and severely anemic. #hypercarbic respiratory failure secondary to COPD exacerbation ; -when off oxygen patient desaturates quickly; -steroids iv to po now 40mg qd -symbicort 2puffs bid -albuterol neb sched/q4h prn -CXR wnl -chest CT; indicating centrilobular emphysema; dilated pulmonary arterial vasc; pulm htn; and a PENNY nodule -pulmonary consult #lung nodule on chest CT: -lung ca evaluation PET scan and CT guided needle biopsy as out patient #anemia acute on chronic;most likely from AVM found on EGD -2 U PRBC on admission; -heme/hct stable; -iron supplement -abdominal US/Pelvic: details above: multiple hepatic cysts: trace free fluids/ ascities RUQ; questionable right pleural effusion -EGD: multiple vessel ectasias in the stomach and duodenum; largest AVM in duodenum treated with epinephrine and APC #hepatomegaly/hepatic cysts -hep A and B negative; -hep c antibody +; RNA pending -liver enzymes wnl #detox: -continue methadone 15mg -taper by 5 mg each day #depression: -cont home meds FEN: Fluids:po Electrolytes:wnl Diet: regular Disposition: need home oxygen dc in am Visit type - Emergency Visit Emergency Visit: Yes ED Registration Date: 08/15/16 Care time: The patient presented to the Emergency Department on the above date and was hospitalized for further evaluation of their emergent condition. - New Patient This patient is new to me today: No - Critical Care Critical Care patient: No
--- NOTE | 2016-08-23 17:04 | PN ---
Teaching Attending Note Name of Resident: Bessy Martinez ATTENDING PHYSICIAN STATEMENT I saw and evaluated the patient. I reviewed the resident's note and discussed the case with the resident. I agree with the resident's findings and plan as documented. SUBJECTIVE: No complaints. Wants to go home. OBJECTIVE: Vital Signs Period Temp Pulse Resp BP Sys/Killian Pulse Ox Last 24 Hr 98.1 F-99.1 F 69-84 18-22 106-140/49-62 90-97 HEART: S1S2, RRR LUNGS: Clear ABDOMEN: Soft, non-tender, non-distended, normal BS EXTREMITIES: No edema ASSESSMENT AND PLAN: This is a 70-year-old woman with a history of heroin abuse, asthma, anemia and depression who was sent to the ER from [facility] because of anemia and hypoxia. 1. Iron-deficiency anemia - Transfused 2 units PRBCs - No signs of bleeding - Continue ferrous sulfate, Protonix - EGD 08/21 showed vascular ectasias in stomach and duodenum - Colonoscopy 08/22 showed small sigmoid polyp, cecal and transverse angiodysplasia 2. Acute on chronic hypoxic and hypercapnic respiratory failure - Improved - Continue Prednisone, Symbicort, Albuterol nebs - Home oxygen 3. Lung nodule - Outpatient pulmonary follow-up for PET and biopsy 4. Continuous heroin dependence - Completed Methadone detox - Not interested in inpatient rehab 5. Type 2 DM - Continue Novolog sliding scale 6. Hypophosphatemia - Resolved 7. Severe protein-calorie malnutrition - Continue Glucerna, multivitamin, thiamine 8. Depression - Continue Paxil 9. Nicotine dependence - Continue nicotine gum as needed
[2016-08-23] MEDS ORDERED: POLYETHYLENE GLYCOL 3350 119 GM BTL PO ONE (19:11)
[2016-08-23] MEDS ORDERED: PT OWN MED DRAWER 7, Y5N ONE ×3 (21:28→23:38)
[2016-08-23] MEDS: DOCUSATE SODIUM 100 MG CAPSULE (FP) PO SCH (21:34)
[2016-08-24] MEDS: DEXTROSE 5%-0.45% SALINE 1,000 ML IV SCH ×2 (04:14→08:56)
[2016-08-24] MEDS: DOCUSATE SODIUM 100 MG CAPSULE (FP) PO SCH ×2 (06:43→13:30)
[2016-08-24] MEDS: INSULIN SLIDING SCALE (NOVOLOG) 1 VIAL SQ SCH ×2 (06:44→11:21)
[2016-08-24] MEDS: ALBUTEROL SO4 0.083% IH SOL 2.5 MG/3 ML VIAL.NEB. NEB SCH (06:45)
[2016-08-24 07:17] LABS: MCH 21.6 pg (25.7-33.7); MCHC 30.1 g/dl (32.0-36.0); MEAN CELL VOLUME 71.8 fl (80-96); MEAN PLT VOLUME 9.3 fl (7.5-11.1); PLATELET COUNT 176 K/MM3 (134-434); RDW 33.4 % (11.6-15.6); WHITE BLOOD COUNT 6.4 K/mm3 (4.0-10.0)
[2016-08-24 07:58] VITALS: PULSE 67
[2016-08-24] MEDS: FERROUS SO4 325 MG TABLET (FP) PO SCH ×2 (08:53→12:24)
[2016-08-24] MEDS: MULTIVITAMINS (DAILY MVI) TABLET (FP) PO SCH (09:00)
[2016-08-24] MEDS: predniSONE 20 MG TABLET (UD) PO SCH (09:00)
[2016-08-24] MEDS: PANTOPRAZOLE 40 MG TABLET (FP) PO SCH (09:00)
[2016-08-24] MEDS: PARoxetine HCL 10 MG TABLET (FP) PO SCH (09:00)
[2016-08-24] MEDS: THIAMINE HCL 100 MG TABLET (FP) PO SCH (09:00)
[2016-08-24] MEDS: ASCORBIC ACID 500 MG TABLET (FP) PO SCH (09:00)
[2016-08-24] MEDS: BUDESONIDE/FORMETEROL FUMARATE 160/4.5 mcg INHALER IH SCH (09:03)
[2016-08-24 09:20] LABS: ANISOCYTOSIS 3+; HYPOCHROMIA 1+; MICROCYTOSIS 1+; PLATELET ESTIMATE ADEQUATE (NORMAL); POLYCHROMASIA 1+; TARGET CELLS 1+
[2016-08-24 09:36] VITALS: BP 126/60; TEMP 98.8
[2016-08-24] MEDS ORDERED: ACETAMINOPHEN 325 MG TABLET (FP) PO ONE (10:00)
[2016-08-24] MEDS: NICOTINE POLACRILEX 2 MG GUM BUC PRN (10:23)
--- NOTE | 2016-08-24 14:20 | PN ---
Progress Note (short form) - Note Progress Note: PULMONARY VSS/AFEBRILE WANTS TO GO HOME ANICTERIC CLEAR A/P S1S2 BS+ SOFT NO EDEMA LABS/MEDS/NOTES/IMAGING NOTED Acute on Chronic Hypoxic and Hypercapneic Respiratory Failure improved Acute COPD Exacerbation resolved Emphysema Lung Nodule suspicious for malignancy Smoker Heroin Abuse Anemia GI Bleed - continue current prednisone taper - continue symbicort as inpatient, can discharge home on Advair 500/50mcg 1 puff BID and Spiriva 1 puff daily - Albuterol PRN - smoking cessation - advised pt to follow up for her lung nodule as it is suspicious, she will need a PET scan and CT guided needle biopsy as outpt - will need home O2 - DVT prophylaxis - No objection to discharge Jocelyne CAPPS MD
--- NOTE | 2016-08-24 16:19 | PN ---
Teaching Attending Note Name of Resident: Bessy Martinez ATTENDING PHYSICIAN STATEMENT I saw and evaluated the patient. I reviewed the resident's note and discussed the case with the resident. I agree with the resident's findings and plan as documented. SUBJECTIVE: OBJECTIVE: Vital Signs Period Temp Pulse Resp BP Sys/Killian Pulse Ox Last 24 Hr 98.0 F-99.0 F 67-80 18-18 107-128/45-60 95-97 ASSESSMENT AND PLAN:
--- NOTE | 2016-08-24 16:31 | DS ---
Physical Exam: SUBJECTIVE: Patient seen and examined maintains oxygen saturation on 3L [place]. will need O2 at home. Dneis chest pain, sob, MOSHER, fever, changes in bowel or bladder. OBJECTIVE: Vital Signs Period Temp Pulse Resp BP Sys/Killian Pulse Ox Last 24 Hr 98.0 F-99.0 F 67-80 18-18 107-128/45-60 95-97 PHYSICAL EXAM GENERAL: The patient is thin, awake, alert, and fully oriented, in no acute distress. HEAD: Normal with no signs of trauma. EYES: PERRL, extraocular movements intact, sclera anicteric, conjunctiva clear. ENT: Ears normal, nares patent, oropharynx clear without exudates, moist mucous membranes. NECK: Trachea midline, full range of motion, supple. LUNGS: Breath sounds equal, clear to auscultation bilaterally, no wheezes, no crackles, no accessory muscle use. HEART: Regular rate and rhythm, S1, S2 without murmur, rub or gallop. ABDOMEN: Soft, nontender, nondistended, normoactive bowel sounds, no guarding, no rebound, no hepatosplenomegaly, no masses. EXTREMITIES: 2+ pulses, warm, well-perfused, no edema. NEUROLOGICAL: Cranial nerves II through XII grossly intact. Normal speech, gait not observed. PSYCH: Normal mood, normal affect. SKIN: Warm, dry, normal turgor, no rashes or lesions noted. LABS Laboratory Results - last 24 hr 08/23/16 08/24/16 08/24/16 21:37 06:15 06:43 WBC 6.4 D RBC 3.80 Hgb 8.2 L Hct 27.2 L MCV 71.8 L MCHC 30.1 L RDW 33.4 H Plt Count 176 MPV 9.3 Platelet Estimate Adequate Platelet Comment No clumping noted Polychromasia 1+ Hypochromic-Microcytic 1+ Anisocytosis 3+ Microcytosis 1+ Target Cells 1+ POC Glucometer 212 96 08/24/16 11:12 WBC RBC Hgb Hct MCV MCHC RDW Plt Count MPV Platelet Estimate Platelet Comment Polychromasia Hypochromic-Microcytic Anisocytosis Microcytosis Target Cells POC Glucometer 107 HOSPITAL COURSE: Date of Admission:08/15/16 Date of Discharge: 08/24/16 Abdominal/Pelvic/Bladder US: Multiple hepatic cysts, as described above with the largest in the right hepatic lobe measuring 5.1 x 3.6 cm. Partially distended gallbladder with borderline thickening of its wall and without intraluminal stones or pericholecystic free fluid. There is a trace of free fluid/ascites in the right upper quadrant and questionable minimal right pleural effusion. Pelvis/urinary bladder ultrasound Urinary bladder is moderately distended with a volume of 245 cc without thickening of its wall. Ureteral jets were not identified. There is approximately 58 cc of postvoid urine residue The uterus measures 6.6 x 3.3 cm without gross evidence of a mass/fibroid. Limited visualization of the endometrial wall without gross thickening. Both ovaries were not visualized. IMPRESSION: Normal size uterus without definite visualization of the endometrial stripe. No gross mass/fibroid is identified. Please correlate with transvaginal ultrasound for further evaluation Moderately distended urinary bladder without wall thickening. Bilateral ureteral jets were not visualized. Approximately 58 cc of postvoid urine residue is present. Chest CT non contrast IMPRESSION: A solitary nonspecific 1.2 x 1 x 1 cm left upper lobe pulmonary nodule is noted which could be on the basis of primary neoplastic disease. Additional evaluation utilizing PET/CT may be performed. Centrilobular emphysema. Dilated central pulmonary arterial vasculature consistent with evidence of pulmonary hypertension. Possible minimal to mild cardiomegaly. Small bilateral pleural effusions. Small amount of perihepatic ascites. A dedicated abdomen/pelvic CT study may be performed. Hepatic cysts. Moderate T6 and mild T5 vertebral body compression fractures which appear chronic. ASSESSMENT/PLAN: 70 year old female with a past medical history of asthma, anemia, drug abuse, sent over from [facility] due to anemia, hypoxia, found to be in acute respiratory failure and severely anemic. #hypercapnic respiratory failure secondary to COPD exacerbation ; -steroids iv to po taper/albuterol neb sched/q4h prn/ symbicort : in hospital -sent home on advair 500/50 1puff bid; and spiriva 1puff qd -CXR wnl -chest CT; indicating centrilobular emphysema; dilated pulmonary arterial vasc; pulm htn; and a PENNY nodule -pulmonary consult #lung nodule on chest CT: impression above -lung ca evaluation PET scan and CT guided needle biopsy as out patient #anemia acute on chronic;most likely from AVM found on EGD -2 U PRBC on admission; -heme/hct stable; -iron supplement -abdominal US/Pelvic: details above: multiple hepatic cysts: trace free fluids/ ascities RUQ; questionable right pleural effusion -EGD: multiple vessel ectasias in the stomach and duodenum; largest AVM in duodenum treated with epinephrine and APC #hepatomegaly/hepatic cysts -hep A and B negative; -hep c antibody +; RNA pending -liver enzymes wnl #detox: was on methadone taper -counseled on harms of drug use and smoking #depression: -cont home meds Disposition:home oxygen / follow up with pulmonary Minutes to complete discharge: 35 Discharge Summary Reason For Visit: ANEMIA/ACUTE RESP FAIL WITH HYPOXIA Condition: Improved - Instructions Diet, Activity, Other Instructions: Ms Dover, you have been evaluated for your episode of shortness of breath. You are going to need home oxygen. Continue with smoking cessation. There was also a lung nodule found on your imaging study that we would like you to follow up with the figure skater. You are also anemic, we would like you to continue talking iron supplement. Please follow up with your primary physician with on one week. We have adjusted your medications, please take as advised. Please follow up with your primary regarding your elevated blood sugars. If you experience any worsening of symptoms, including chest pain, shortness of breath, please return to the nearest emergency room. Referrals: Michela Mendoza MD [Primary Care Provider] - Nik Okeefe MD, MD [Staff Physician] - Disposition: HOME - Home Medications Comprehensive Discharge Medication List: Ambulatory Orders Ascorbic Acid [Vitamin C] 500 mg PO BID 08/15/16 Ferrous Sulfate [Feosol] 325 mg PO DAILY 08/15/16 Hydroxyzine Pamoate [Vistaril -] 50 mg PO TID 08/15/16 Loperamide HCl [Imodium -] 4 mg PO ASDIR 08/15/16 Magnesium Hydrox 2400MG/30Ml [Milk of Magnesia -] 30 ml PO ONCE 08/15/16 Paroxetine HCl [Paxil -] 10 mg PO DAILY 08/15/16 Vit/Iron Fumarate/FA [ Tablet] 1 each PO DAILY 08/15/16 Thiamine HCl [Vitamin B1 -] 100 mg PO DAILY 08/15/16 Ferrous Sulfate [Feosol] 325 mg PO TIDCM #90 tab 08/24/16 Nicotine Polacrilex [Nicorelief -] 2 mg BUC Q2H PRN #1 gum 08/24/16 Pantoprazole Sodium [Protonix -] 40 mg PO DAILY #15 tab 08/24/16 Prednisone 10 mg PO DAILY #10 tablet 08/24/16 Salmeterol/Fluticasone [Advair 250Mcg/50Mcg -] 1 inh IH BID #1 inh 08/24/16 Tiotropium [place] [Spiriva] 1 inh IH DAILY #1 inh 08/24/16 This patient is new to me today: No Emergency Visit: Yes ED Registration Date: 08/15/16 Care time: The patient presented to the Emergency Department on the above date and was hospitalized for further evaluation of their emergent condition. Critical Care patient: No - Discharge Referral Referred to [facility] Med P.C.: No
[2016-08-27 10:10] LABS: HCV LOG 10 5.394 (.)
== END 2016-08-24 15:23 | disposition home or self-care (01) | DRG 377 ==
LOC: JER 12:52 → JERBED 17:00 → J4W 08-16 15:40 → J5S 08-19 16:44
PROVIDERS: ADMIT Internal Medicine; ATTEND Internal Medicine
PROC: 30233N1 Transfusion of Nonautologous Red Blood Cells into Peripheral Vein, Percutaneous Approach (ICD-10-PCS; principal; 2016-08-15)
PROC: HZ2ZZZZ Detoxification Services for Substance Abuse Treatment (ICD-10-PCS; 2016-08-15)
PROC: 5A09557 Assistance with Respiratory Ventilation, Greater than 96 Consecutive Hours, Continuous Positive Airway Pressure (ICD-10-PCS; 2016-08-15)
PROC: 0DB98ZX Excision of Duodenum, Via Natural or Artificial Opening Endoscopic, Diagnostic (ICD-10-PCS; 2016-08-21)
PROC: 0DB68ZX Excision of Stomach, Via Natural or Artificial Opening Endoscopic, Diagnostic (ICD-10-PCS; 2016-08-21)
PROC: 0W3P8ZZ Control Bleeding in Gastrointestinal Tract, Via Natural or Artificial Opening Endoscopic (ICD-10-PCS; 2016-08-21)
PROC: 3E0G8GC Introduction of Other Therapeutic Substance into Upper GI, Via Natural or Artificial Opening Endoscopic (ICD-10-PCS; 2016-08-21)
PROC: 0DJD8ZZ Inspection of Lower Intestinal Tract, Via Natural or Artificial Opening Endoscopic (ICD-10-PCS; 2016-08-21)
PROC: 0DBN8ZX Excision of Sigmoid Colon, Via Natural or Artificial Opening Endoscopic, Diagnostic (ICD-10-PCS; 2016-08-22)
DX: K31.811 Angiodysplasia of stomach and duodenum with bleeding (principal); J96.01 Acute respiratory failure with hypoxia; J96.02 Acute respiratory failure with hypercapnia; E43 Unspecified severe protein-calorie malnutrition; F11.23 Opioid dependence with withdrawal; J44.1 Chronic obstructive pulmonary disease with (acute) exacerbation; J90 Pleural effusion, not elsewhere classified; R18.8 Other ascites; D50.9 Iron deficiency anemia, unspecified; R63.4 Abnormal weight loss; Z68.20 Body mass index [BMI] 20.0-20.9, adult; E11.9 Type 2 diabetes mellitus without complications; F41.8 Other specified anxiety disorders; F17.210 Nicotine dependence, cigarettes, uncomplicated; R16.0 Hepatomegaly, not elsewhere classified; E83.39 Other disorders of phosphorus metabolism; R91.1 Solitary pulmonary nodule; Q27.33 Arteriovenous malformation of digestive system vessel; D12.5 Benign neoplasm of sigmoid colon; K76.89 Other specified diseases of liver; K64.8 Other hemorrhoids; I27.2 Other secondary pulmonary hypertension
CPT/HCPCS: 36415; 36430; 36600; 70450-TC; 71010-TC; 71250-TC; 76700-TC; 76856-TC; 80048; 80053; 81003; 82105; 82140; 82375; 82550; 82728; 82803; 83036; 83050; 83540; 83550; 83735; 84100; 84155; 84165; 84484; 85025; 85027; 85610; 86038; 86704; 86705; 86706; 86708; 86850; 86900; 86901; 86922; 87340; 87522; 88305-TC; 93005; 93010; 94640; 94660; 94761; 97116-GP; 97161-GP; 99285-25; P9038; P9058